=== PATIENT | female | born 1950 | race Caucasian/White ===

== ENCOUNTER 2016-06-21 07:30 | Day surgery (SDC) | payer BC ==
--- NOTE | 2016-06-01 16:14 | History and Physical ---
History & Physical Date Jun 01, 2016. Chief Complaint Chronic cough with bronchiectasis History of Present Illness The patient is a 66 year old female with complaints of chronic cough with bronchiectasis: [id number] 66-year-old female here for follow-up on chronic bronchiectasis/cough: Patient was noted to have severe necrotizing pneumonia of the left upper lobe in 12/2013 with polymicrobial etiology. Since then she has had a chronic cough which has been intermittently productive but appears to be worsening in its affect on her daily life activities. On April 25, 2016 she noted severe coughing overnight and was evaluated by her PCP with chest x-ray showing no acute changes. She continues on her previous medication but does note increasing debility secondary to the cough for the past 12 months. Denies: Fever, chills, night sweats, hemoptysis, productive sputum, pleurisy PMHx: 1.Bronchitic asthma 2.GERD 3.DM II 4.Peripheral neuropathy 5.lichen planus 6.vitamin-D deficiency 7.PFO 8.Hx necrotizing pneumonia/abscess MAME a.Polymicrobial: Klebsiella, Haemophilus, and Streptococcus intermedius 9.Bronchoscopy a.12/31/13: Klebsiella b.04/01/2014 i.mucopurulent secretions ii.No organism cultured. Fungal + rare aspergillus non-fumigatas c.08/29/14 i.Were Aspergillus no fumigatus d.10/21/14 i.Rare Wilda 10.Transthoracic CT-guided biopsy of the left upper lobe a.Klebsiella, Streptococcus, Haemophilus 11.Obesity s/p bariatric surgery 12.Former history of tobacco use for 5-10 pack-year quit 1994 13.No occupational exposure 14.Difficulty to exposures such as perfumes and other allergens Date: 10/15/2015 PRE POST % CHANGE FEV1/FVC: 57 FEV1: 1.70/67 % 1.78/70 % 5 % FVC: 3.00/94 % 3.16/99 % 5 % 25-27%: 69 % 69 % T.07/115 % VC: 3.64/114 % RV: 2.43/119 % FRC: 2.55/97 % DLCO: 76 % DLCO/VA: 121 % Past Medical/Surgical History 1.Bronchitic asthma 2.GERD 3.DM II 4.Peripheral neuropathy 5.lichen planus 6.vitamin-D deficiency 7.PFO 8.Hx necrotizing pneumonia/abscess MAME a.Polymicrobial: Klebsiella, Haemophilus, and Streptococcus intermedius 9.Bronchoscopy a.12/31/13: Klebsiella b.04/01/2014 i.mucopurulent secretions ii.No organism cultured. Fungal + rare aspergillus non-fumigatas c.08/29/14 i.Were Aspergillus no fumigatus d.10/21/14 i.Rare Wilda 10.Transthoracic CT-guided biopsy of the left upper lobe a.Klebsiella, Streptococcus, Haemophilus 11.Obesity s/p bariatric surgery 12.Former history of tobacco use for 5-10 pack-year quit 1994 13.No occupational exposure 14.Difficulty to exposures such as perfumes and other allergens Additional History Hepatic Disease: No Endocrine Disorder: DM Kidney Disease: No Hypertension: Yes Heart Disease: No Bleeding Tendencies: No Infectious Diseases: Yes Allergies Coded Allergies: BEE STING (Unverified Allergy, Severe, SWELLING AND TROUBLE BREATHING, ) Sulfa Antibiotics (Verified Allergy, Severe, HIVES, 10/21/14) Home Medications Scheduled Cyanocobalamin (Vitamin B-12 Inj), 1,000 MCG SQ MONTHLY Epinephrine (Epipen), 0.3 MG IM UD Ergocalciferol (Vitamin D2), 2,000 MG PO QAM Metformin Hcl (Glucophage Ext Rel), 1,000 MG PO BID Multivitamins/Minerals (Mvi With Minerals), 1 TAB PO DAILY Thiamine Hcl (Vitamin B-1), 100 MG PO DAILY Scheduled PRN Ipratropium-Albuterol (Combivent Respimat), 1 PUFFS INH QID PRN for Wheezing Miscellaneous Medications Albuterol Sulf (Albuterol Sulfate 0.083% For Inh), 3 ML INH Physical Examination Skin: warm/dry, no rash Eyes: normal inspection, EOMI, sclerae normal ENT: normal ENT inspection, pharynx normal Head: normocephalic, atraumatic Neck: supple, no adenopathy, trachea midline Respiratory/Chest: lungs clear, normal breath sounds, no respiratory distress Cardiovascular: regular rate, rhythm, no edema, no murmur Abdomen / GI: normal bowel sounds, non tender Back: normal inspection Extremities: normal inspection, normal range of motion Genitourinary - Female: external genitalia normal, normal pelvic exam Neurologic/Psych: no motor/sensory deficits, alert, normal reflexes, oriented x 3 Diagnosis Chronic cough with bronchiectasis ASA Classification: ASA Class II Plan of Treatment Bronchoscopy with bronchial alveolar lavage for evaluation of chronic cough
[2016-06-21] VITALS (15 sets, daily range): BP systolic 128–175; BP diastolic 65–128; PULSE 61–119; TEMP 36.7–37.1; O2SAT 93–100; Ht 162.6 cm; Wt 91.0 kg
[~2016-06-21] VITALS: Ht 162.6 cm; Wt 91.0 kg
[~2016-06-21 07:30] MED LIST: ALBU1NEB10 INH; CYAN3INJ SQ; EPP3/2 IM; ERGO1TAB12 PO; IPRA1AER2 INH; METF1TAB53 PO; MULT-513 PO; THIA100T11 PO
[2016-06-21] MEDS ORDERED: LIDOCAINE HCL 2% LOCAL 50ML VIAL INFIL ONE (07:31)
[2016-06-21] MEDS ORDERED: LEVALBUTEROL 1.25MG/3ML NEB INH ONE (07:31)
[2016-06-21] MEDS ORDERED: LIDOCAINE 4% W/AFRIN NASAL SOLN 4ML ONE (07:31)
[2016-06-21] MEDS ORDERED: FENTANYL CITRATE INJ 50 MCG/1 ML 2 ML VIAL IV ONE (07:31)
[2016-06-21] MEDS ORDERED: MIDAZOLAM HCL 5 MG/ML 1 ML VIAL IV ONE (07:31)
[2016-06-21] MEDS ORDERED: INSU100I2 (08:38)
[2016-06-21] MEDS ORDERED: ESCI10TA17 PO (08:45)
[2016-06-21] MEDS ORDERED: [UNRECOGNIZED DRUG - OTHER] PO (08:45)
[2016-06-21] MEDS ORDERED: SYMIN160 INH (08:45)
[2016-06-21] MEDS ORDERED: flonase nasal NAE (08:45)
[2016-06-21] MEDS ORDERED: SUCR1TAB29 PO (08:45)
--- NOTE | 2016-06-21 10:08 | History & Physical Bridge Note ---
H&P Re-Evaluation Bridge Note: I have examined the patient, reviewed the History & Physical and in the interval since the performance of the History & Physical I have noted the following changes of clinical significance: No changes noted
--- NOTE | 2016-06-21 10:09 | Procedure Note ---
Pre-Mod Sedation Assessment General Date of Moderate Sedation: Jun 21, 2016. Vital Signs: Vital Signs Past 12 Hours Date Time Temp Pulse Resp B/P Pulse Ox O2 Delivery O2 Flow Rate FiO2 06/21/16 08:25 37.1 70 20 174/85 96 Room Air Pre-Sedation Airway Assessment Oral Cavity: Dentures Smoking Status: Former Smoker Mallampati Classification: Class II ASA Classification: Class I Procedure Planning Contraindications-for Mod Sed: None Yes Notes The planned sedation has been discussed with the patient and consent obtained. I have identified the patient, determined the appropriateness of sedation and have assessed the patient immediately prior to the procedure. All medicine(s) and interventions are by my order.
[2016-06-21] MEDS ORDERED: NURSING VERBAL MED ORDER ONE (11:15)
--- NOTE | 2016-06-21 11:22 | OPERATIVE REPORT ---
DATE OF OPERATION: 06/21/2016 TIME: 0900. PROCEDURE: Fiberoptic bronchoscopy with bronchoalveolar lavage. INDICATIONS: COPD with persistent cough refractory to outpatient therapy. ANESTHESIA PREOPERATIVELY: None. ANESTHESIA DURING PROCEDURE: 5 mg IV Versed, 50 mcg IV fentanyl, 20 mL 2% Xylocaine spray above and below the cords, 4% viscous Xylocaine intranasally. PROCEDURE: Fiberoptic bronchoscope was inserted into the left naris with minimal difficulty and passed to the level of the true vocal cords. The cords appeared to approximate normally with phonation without evidence of lesions or paralysis. The area was anesthetized with 4% Xylocaine spray and the scope was then introduced in the trachea and right and left tracheobronchial tree. The ada was sharp. The right main stem bronchus was free of endobronchial lesions. The right upper lobe of the apical-posterior and anterior segments, bronchus intermedius, right middle lobe, and the medial and lateral segments and all basilar segments of right lower lobe were found to be free of endobronchial lesions. A minimal to moderate amount of mucoviscous secretion was lavaged from all lobar segments until clear. Mucus pitting with bronchial crypts and clefts were seen throughout the right tracheobronchial tree. The left tracheobronchial tree showed similar changes with more inflammatory mucosal change seen involving the left upper lobe and lingular subdivision. The left upper lobe of the apical-posterior and anterior segments, and lingular subdivision were lavaged copiously with normosol and the aspirate sent for appropriate studies. The left lower lobe with all basilar segments as well was lavaged with normosol and the aspirate sent for appropriate studies. No brushings or biopsies were deemed necessary. The patient tolerated the procedure well and was given a nebulizer treatment with Xopenex 1.25 mg, then transferred to the medical treatment unit hemodynamically stable with no signs of respiratory compromise. Will await microbiological and cytologic examination of the bronchial washings. I attest to the content of the Intraoperative Record and any orders documented therein. Any exceptions are noted below. MTDD
--- NOTE | 2016-06-21 11:36 | Discharge Instructions ---
Discharge Instructions Admission Reason for Admission: Asthma, Cough, bronchiectasis Discharge Discharge Diagnosis / Problem: Bronchiectasis and Cough Discharge Goals Goal(s): Diagnostic testing, Therapeutic intervention Activity Recommendations Activity Limitations: resume your previous activity . Instructions / Follow-Up Instructions / Follow-Up ACTIVITY RECOMMENDATIONS: * Rest today, resume normal activity tomorrow. * Do not drive today. SPECIAL CARE INSTRUCTIONS: * Call your physician if you experience any chest or shoulder pain, fever, coughing, spitting up blood (more than 2 teaspoons) or excessive shortness of breath. * Remove dressing from IV site (where needle was placed into the vein) after 2 hours. Apply a warm, moist compress to site if irritation occurs. Call physician if site becomes red or painful to touch. FOLLOW UP VISIT: * Keep any scheduled doctor appointments: Zuhair Galaviz PA-C on June 29, 2016 at 2:00PM Current Hospital Diet None Discharge Diet Recommended Diet: Diabetes Type 2 Diet (Prior Diabetic Diet ) Procedures Procedures Performed: Bronchoscopy 06/21/16 Pending Studies Studies pending at discharge: yes List of pending studies: Cultures and pathology from respiratory origin Medical Emergencies . Who to Call and When: Medical Emergencies: If at any time you feel your situation is an emergency, please call 911 immediately. . Non-Emergent Contact Non-Emergency issues call your: Patient Safety Tech . . "Provider Documentation" section prepared by Ju Pearson. VTE Core Measure Inpt VTE Proph given/why not?: Contraindicated
[2016-06-21] MEDS ORDERED: DEXTROSE 5% 1000ML 1,000 ML IV SCH (12:45)
[2016-06-21] MEDS ORDERED: MIDAZOLAM HCL 5 MG/ML 1 ML VIAL IV SCH (13:00)
[2016-06-21] MEDS ORDERED: FENTANYL CITRATE INJ 50 MCG/1 ML 2 ML VIAL IV SCH (13:00)
[2016-07-16 14:45] LABS: HERPES SIMPLEX CULT SOURCE RESPIRATORY-RT AND L; HERPES SIMPLEX VIRUS CULT NOT ISOLATED (NOT ISOLATED)
== END 2016-06-21 13:05 | disposition home or self-care (01) ==
LOC: C.ACU 07:30
PROVIDERS: ATTEND Internal Medicine Pulmonary Disease
DX: J44.9 Chronic obstructive pulmonary disease, unspecified (principal); J47.9 Bronchiectasis, uncomplicated; J45.909 Unspecified asthma, uncomplicated; E11.9 Type 2 diabetes mellitus without complications; Z88.2 Allergy status to sulfonamides; Z98.84 Bariatric surgery status; E66.9 Obesity, unspecified; Z87.891 Personal history of nicotine dependence

== ENCOUNTER → 2016-06-30 | Outpatient (CLI) | payer BC ==
[~2016-06-30] MED LIST changes: +ESCI10TA17 PO; +INSU100I2; +SUCR1TAB29 PO; +SYMIN160 INH; +[UNRECOGNIZED DRUG - OTHER] PO; +flonase nasal NAE
--- NOTE | 2016-06-30 13:55 | ECHOCARDIOGRAM REPORT ---
*NOTICE TO RECEIVING LIBERTARIAN AGENCY This information is strictly Confidential and protected under [place] law. [place] law prohibits you from making any further disclosure of this information unless further disclosure is expressly permitted by the written consent of the person to whom it pertains or is authorized by law. A general authorization for the release of medical or other information is not sufficient for this purpose. Hospital accepts no responsibility if the information is made available to any other person, INCLUDING THE PATIENT. Interpretation Summary * Name: YAMIL PALMA Study Date: 06/30/2016 01:37 PM BP: 176/82 mmHg * Patient Location: [facility] HR: 63 * : 1950 (M/d/yyyy) Gender: Female Height: 65 in * Age: 66 yrs Ethnicity: [place] Weight: 200 lb * Ordering Physician: Zach Naidu * Referring Physician: aZch Naidu * Performed By: Rehana Nixon * * Reason For Study: CHEST PAIN, SOB, COUGH, BRONCHOPNEUMONIA * BSA: 2.0 m2 * -- Conclusions -- * Left ventricular systolic function is normal. * No regional wall motion abnormalities noted. * Ejection Fraction = 55-60%. * There is borderline concentric left ventricular hypertrophy. * Grade I diastolic dysfunction, (abnormal relaxation pattern). Procedure Details * A complete two-dimensional transthoracic echocardiogram was performed (2D, M-mode, Doppler and color flow Doppler). Left Ventricle * The left ventricle is normal in size. * There is borderline concentric left ventricular hypertrophy. * Ejection Fraction = 55-60%. * Left ventricular systolic function is normal. * No regional wall motion abnormalities noted. Right Ventricle * The right ventricle is not well visualized. * The right ventricular systolic function is normal as assessed by tricuspid annular plane systolic excursion (TAPSE) (normal >1.5 cm). Atria * The left atrial size is normal. * Right atrial size is normal. * No ASD detected; PFO is not assessed. Mitral Valve * The mitral valve is grossly normal. * There is no mitral valve stenosis. * Significant mitral regurgitation is absent. Tricuspid Valve * The tricuspid valve is not well visualized, but is grossly normal. * There is no tricuspid stenosis. * Significant tricuspid regurgitation is absent. Aortic Valve * The aortic valve is trileaflet. * The aortic valve opens well. * Aortic valve sclerosis mild, without significant aortic valvular stenosis. * No aortic regurgitation is present. Pulmonic Valve * The pulmonary valve is not well seen, but the Doppler examination is normal without significant regurgitation or stenosis. Great Vessels * The aortic root and proximal ascending aorta are normal sized. * The pulmonary artery is not well visualized, but is probably normal size. Pericardium/Pleural * There is no pericardial effusion. Great Vessels * IVC not well seen. Left Ventricular Diastolic Function * Grade I diastolic dysfunction, (abnormal relaxation pattern). MMode 2D Measurements and Calculations IVSd 1.4 cm IVSs 1.7 cm LVIDd 3.7 cm LVIDs 2.4 cm LVPWd 1.4 cm LVPWs 1.8 cm IVS/LVPW 1.0 FS 33.9 % EDV(Teich) 58.2 ml ESV(Teich) 21.2 ml EF(Teich) 63.7 % EDV(cubed) 50.8 ml ESV(cubed) 14.7 ml EF(cubed) 71.1 % % IVS thick 16.2 % % LVPW thick 28.3 % LV mass(C)d 188.3 grams LV mass(C)dI 95.2 grams/m\S\2 LV mass(C)s 157.5 grams LV mass(C)sI 79.6 grams/m\S\2 SV(Teich) 37.1 ml SI(Teich) 18.7 ml/m\S\2 SV(cubed) 36.1 ml SI(cubed) 18.3 ml/m\S\2 ACS 1.5 cm LA dimension 3.6 cm LVOT diam 1.6 cm LVOT area 1.9 cm\S\2 LVAd ap4 23.9 cm\S\2 LVLd ap4 7.1 cm EDV(MOD-sp4) 64.2 ml EDV(sp4-el) 68.2 ml LVAs ap4 14.7 cm\S\2 LVLs ap4 6.2 cm ESV(MOD-sp4) 29.1 ml ESV(sp4-el) 29.4 ml EF(MOD-sp4) 54.7 % EF(sp4-el) 56.8 % LVAd ap2 26.9 cm\S\2 LVLd ap2 7.8 cm EDV(MOD-sp2) 76.1 ml EDV(sp2-el) 78.9 ml LVAs ap2 16.6 cm\S\2 LVLs ap2 6.1 cm ESV(MOD-sp2) 36.1 ml ESV(sp2-el) 38.2 ml EF(MOD-sp2) 52.5 % EF(sp2-el) 51.5 % LVLd %diff 8.5 % EDV(MOD-bp) 72.6 ml LVLs %diff -1.96 % ESV(MOD-bp) 32.1 ml EF(MOD-bp) 55.7 % SV(MOD-sp4) 35.1 ml SI(MOD-sp4) 17.7 ml/m\S\2 SV(MOD-sp2) 40.0 ml SI(MOD-sp2) 20.2 ml/m\S\2 SV(MOD-bp) 40.5 ml SI(MOD-bp) 20.5 ml/m\S\2 SV(sp4-el) 38.7 ml SI(sp4-el) 19.6 ml/m\S\2 SV(sp2-el) 40.6 ml SI(sp2-el) 20.5 ml/m\S\2 Doppler Measurements and Calculations MV E max oilvia 80.8 cm/sec MV A max olivia 114.0 cm/sec MV E/A 0.71 MV dec time 0.29 sec Ao V2 max 128.4 cm/sec Ao max PG 6.6 mmHg Ao max PG (full) 2.0 mmHg SMILEY(V,A) 1.6 cm\S\2 SMILEY(V,D) 1.6 cm\S\2 LV V1 max PG 4.6 mmHg LV V1 mean PG 2.3 mmHg LV V1 max 107.6 cm/sec LV V1 mean 69.3 cm/sec LV V1 VTI 29.2 cm SV(LVOT) 55.8 ml SI(LVOT) 28.2 ml/m\S\2 PA V2 max 77.8 cm/sec PA max PG 2.4 mmHg
== END | disposition home or self-care (01) ==
LOC: C.CPL 11:53
PROVIDERS: ATTEND Internal Medicine Pulmonary Disease
DX: R07.9 Chest pain, unspecified (principal)

== ENCOUNTER 2018-11-01 09:17 | Inpatient (IN) ==
[2018-11-01] MEDS ORDERED: SODIUM CHLORIDE 0.9% 1000ML 1,000 ML IV ONE (09:25)
[2018-11-01] MEDS ORDERED: ACETAMINOPHEN 1,000 MG/100 ML VIAL IV STA (09:25)
[2018-11-01] MEDS ORDERED: ONDANSETRON INJ 2 MG/ML 2 ML VIAL IV STA (09:25)
[2018-11-01] MEDS ORDERED: MoRPHine SULFATE 2 MG/ML CARP IV PRN (09:25)
--- NOTE | 2018-11-01 09:42 | XRay Report ---
XR chest 1V portable CLINICAL HISTORY: Shortness of breath. COMPARISON STUDY: Chest CT August 16, 2017. Chest radiograph August 25, 2018. FINDINGS: Lung volumes are normal. Linear bilateral lung opacities represent scarring or atelectasis. There is no pneumothorax or pleural effusion. Cardiac size is normal. Mediastinal contours are mannie l. There is no evidence for pulmonary edema. IMPRESSION: No acute cardiopulmonary findings. Electronically signed by: Valerio Epps M.D. 11/01/2018 9:41 AM
[2018-11-01] MEDS ORDERED: MoRPHine SULFATE 4 MG/ML 1 ML CARP\\VIAL IV STA (10:02)
[2018-11-01 10:03] LABS: Basophils # (auto) 0.02 K/uL (0-0.2); Basophils % (auto) 0.2 %; Eosinophils # (auto) 0.02 K/uL (0-0.5); Eosinophils % (auto) 0.2 %; Hematocrit (blood only) 46.3 % (37-47); Hemoglobin 15.4 g/dL (12.0-16.0); Immature Granulocytes # (auto) 0.03 K/uL (0.00-0.02); Immature Granulocytes % (auto) 0.2 %; Lymphocytes # (auto) 1.25 K/uL (1.2-3.4); Lymphocytes % (auto) 9.4 %; Mean Corpuscular Hgb Conc 33.3 g/dL (32-36); Mean Corpuscular Volume 87.9 fL (80-100); Mean Platelet Volume 10.4 fL (7.4-10.4); Monocytes # (auto) 0.91 K/uL (0.11-0.59); Monocytes % (auto) 6.9 %; Neutrophils % (auto) 83.1 %; Platelet Count 261 K/uL (130-400); RDW Coefficient of Variation 13.6 % (11.5-14.5); RDW Standard Deviation 43.6 fL (36.4-46.3); Red Blood Count 5.27 M/uL (4.2-5.4); White Blood Count 13.23 K/uL (4.8-10.8)
--- NOTE | 2018-11-01 10:13 | Emergency Department Note ---
Entered by Rehana Herman acting as a scribe for Carlos Mercedes MD History of Present Illness General Chief complaint: Abdominal Pain Time Seen by Provider: 11/01/18 09:20 Source: patient History of Present Illness Onset (ago): hour(s) (this morning) Location: abdomen (left upper quadrant) Radiation: other (left shoulder and left arm) Severity: severe Pain Consistency: + other (episode) Current Pain Intensity: 10 Associated symptoms: + denies other symptoms (diarrhea, changes to bowel movements) and + other (nausea, vomiting, bloating) The patient is a 68 year old female that is presenting to the Emergency Room with complaints of an episode of severe upper left abdominal pain that started this morning. The patient reports that she started having 10/10 abdominal pain starting around 0330 this morning. She states that she thought that the pain would resolve if she lay still, but she notes that the pain continued to worsen. She notes that she was at work when the pain started. The patient reports that she vomited once this morning and notes that she is currently nauseous. She states that she is unsure if there was any blood in her vomit. She states that she feels bloated. She notes that the pain radiates into her left shoulder and left arm. She denies any diarrhea and notes that she has had normal bowel movements. The patient reports that she was nauseous and vomiting last night but she notes that the pain was only mild at that time. She states that she has a history of a bleeding ulcer but she notes that she has run out of Protonix. The patient reports that she has a history of a gastric bypass but notes that her current pain is out of the ordinary for her. She denies using any blood thinners. She denies any history of a bowel obstruction. She notes that she had abnormal creatinine levels in the past due to abnormal blood glucose levels, but she states that this has since resolved. The patient reports that she has a history of COPD and bronchiectasis. She notes that she was concerned that her current symptoms were related to her lungs. Home Medications Home Medications Medication Instructions Recorded Confirmed Type albuterol sulfate 3 ml INHALATION Q6 PRN #0 10/21/14 11/01/18 History budesonide-formoterol 2 puff INHALATION BID #0 inhaler 06/21/16 11/01/18 History amlodipine 10 mg PO QAM 11/01/18 11/01/18 History cholecalciferol (vitamin D3) 5,000 unit PO QAM 11/01/18 11/01/18 History [Vitamin D3] fluticasone propionate [Flonase 2 spray INTRANASAL DAILY PRN 11/01/18 11/01/18 History Allergy Relief] glimepiride 1 mg PO QAM 11/01/18 11/01/18 History lorazepam 1 mg PO QAM PRN 11/01/18 11/01/18 History metformin 1,000 mg PO BID 11/01/18 11/01/18 History qpzafmvfprrr-crozmmyu-edlhik 1 tab PO QAM 11/01/18 11/01/18 History [Multivitamin 50 Plus] sucralfate 1 g PO QID 11/01/18 11/01/18 History thiamine HCl (vitamin B1) 250 mg PO QAM 11/01/18 11/01/18 History trazodone 150 mg PO HS PRN 11/01/18 11/01/18 History Allergies Allergy/AdvReac Type Severity Reaction Status Date / Time bee venom protein (honey bee) Allergy Severe SWELLING Unverified 11/01/18 10:57 AND TROUBLE BREATHING Sulfa (Sulfonamide Allergy Severe HIVES Verified 11/01/18 10:57 Antibiotics) Past Med/Surg History Medical History Diabetes mellitus Hemoptysis (Acute) Hiatal hernia (Acute) Bronchiectasis COPD (chronic obstructive pulmonary disease) Pneumonia Surgical History S/P carpal tunnel release S/P gastric bypass History of bronchoscopy Family History Other Family history non-contributory Social History Preferred Language: Ghanaian Communication Ability: Effective Beliefs That Will Affect Care: None Current Living Situation: Alone Feels Safe at Home: Yes Smoking Status: Never smoker Tobacco Type: cigarettes Hx Alcohol Use: No Hx Substance Use: No Review of Systems See HPI for pertinent positives & negatives. and A total of 10 systems reviewed and were otherwise negative Physical Exam Vital Signs Vital Signs - 24 hr 11/01/18 09:24 11/01/18 10:02 11/01/18 10:20 Temperature 36.7 C Temperature Source Oral Sepsis Recent Fever Within 48 Hours No Sepsis New/Unexplained Change in Mental Status No Sepsis Action Taken by Nursing No Action Required Pulse Rate 93 H Pulse Rate [Apical] 103 H 86 Pulse Rhythm Regular Pulse Rhythm [Apical] Regular Regular Pulse Strength [Apical] Normal Respiratory Rate 18 18 19 Respiratory Effort / Characteristics Non-Labored Spontaneous Non-Labored Spontaneous Non-Labored Spontaneous Respiratory Depth Normal Normal Normal Respiratory Pattern Regular Regular Regular Blood Pressure 90/58 L Blood Pressure [Left Arm] Blood Pressure [Right Arm] 84/58 L 98/63 L Blood Pressure Mean 68 Blood Pressure Mean [Left Arm] Blood Pressure Mean [Right Arm] 66 74 Blood Pressure Position [Left Arm] Blood Pressure Position [Right Arm] Pulse Oximetry 98 98 99 Oxygen Delivery Method Room Air Room Air Room Air Oxygen Flow Rate 11/01/18 10:45 11/01/18 11:00 11/01/18 11:25 Temperature Temperature Source Sepsis Recent Fever Within 48 Hours Sepsis New/Unexplained Change in Mental Status Sepsis Action Taken by Nursing Pulse Rate 83 Pulse Rate [Apical] 81 80 Pulse Rhythm Pulse Rhythm [Apical] Regular Regular Pulse Strength [Apical] Respiratory Rate 17 18 18 Respiratory Effort / Characteristics Non-Labored Spontaneous Non-Labored Spontaneous Respiratory Depth Normal Normal Respiratory Pattern Regular Regular Blood Pressure 109/66 Blood Pressure [Left Arm] Blood Pressure [Right Arm] 118/61 117/67 Blood Pressure Mean Blood Pressure Mean [Left Arm] Blood Pressure Mean [Right Arm] 80 83 Blood Pressure Position [Left Arm] Blood Pressure Position [Right Arm] Pulse Oximetry 98 97 96 Oxygen Delivery Method Room Air Room Air Room Air Oxygen Flow Rate 11/01/18 11:42 11/01/18 13:50 11/01/18 14:00 Temperature 36.7 C 36.9 C Temperature Source Oral Temporal Artery Scan Sepsis Recent Fever Within 48 Hours Sepsis New/Unexplained Change in Mental Status Sepsis Action Taken by Nursing Pulse Rate Pulse Rate [Apical] 83 80 84 Pulse Rhythm Pulse Rhythm [Apical] Regular Regular Regular Pulse Strength [Apical] Normal Respiratory Rate 20 18 18 Respiratory Effort / Characteristics Non-Labored Spontaneous Non-Labored Spontaneous Non-Labored Spontaneous Respiratory Depth Normal Normal Normal Respiratory Pattern Regular Blood Pressure Blood Pressure [Left Arm] 122/59 L 130/65 Blood Pressure [Right Arm] 130/75 Blood Pressure Mean Blood Pressure Mean [Left Arm] 80 86 Blood Pressure Mean [Right Arm] 93 Blood Pressure Position [Left Arm] Semi-fowlers Semi-fowlers Blood Pressure Position [Right Arm] Sitting Pulse Oximetry 98 100 100 Oxygen Delivery Method Room Air Oxymask Oxymask Oxygen Flow Rate 10 10 11/01/18 14:10 11/01/18 14:20 Temperature Temperature Source Sepsis Recent Fever Within 48 Hours Sepsis New/Unexplained Change in Mental Status Sepsis Action Taken by Nursing Pulse Rate Pulse Rate [Apical] 75 75 Pulse Rhythm Pulse Rhythm [Apical] Regular Regular Pulse Strength [Apical] Respiratory Rate 18 18 Respiratory Effort / Characteristics Non-Labored Spontaneous Non-Labored Spontaneous Respiratory Depth Normal Normal Respiratory Pattern Blood Pressure Blood Pressure [Left Arm] 114/53 L 119/65 Blood Pressure [Right Arm] Blood Pressure Mean Blood Pressure Mean [Left Arm] 73 83 Blood Pressure Mean [Right Arm] Blood Pressure Position [Left Arm] Semi-fowlers Semi-fowlers Blood Pressure Position [Right Arm] Pulse Oximetry 100 100 Oxygen Delivery Method Oxymask Nasal Cannula Oxygen Flow Rate 10 2 GENERAL: Patient is in moderate distress. HEENT: No acute trauma, normocephalic atraumatic, mucous membranes moist, no nasal congestion, no scleral icterus. NECK: No stridor, no adenopathy, no meningismus, trachea is midline. LUNGS: Clear to auscultation bilaterally, no wheeze, no rhonchi, breath sounds equal. HEART: Without murmurs gallops or rubs, regular rate and rhythm. ABDOMEN: Soft, bowel sounds positive, no hernias. Significantly tender in left upper quadrant and epigastric region. EXTREMITIES: No cyanosis or edema, full range of motion of all the joints without pain or difficulty, no signs for acute trauma. NEUROLOGIC: Oriented x 3, no acute motor or sensory deficits, no focal weakness. SKIN: No rash, no jaundice, no diaphoresis. Pale. Course 0921:The patient was evaluated in room B12B. A complete history and physical examination was performed. 1026: I discussed the patients case with Dr. Epps, Radiology, who noted that the patient had a bowel perforation with bowel contents that have leaked into the abdomen. 1030: I updated the patient on her current lab and imaging results. She in amenable to the treatment plan. 1044: I discussed the patients case with Dr. Kemp, General Surgery, who will evaluate the patient further. He recommended that Dr. Quintanilla perform a laparoscopic surgery for the patient as soon as possible. 1050: I discussed laboratory and radiographic results with the patient. She verbalized agreement of the treatment plan. The patient will be evaluated for further management and care by surgery. Consultations Consultation #1: I discussed the patients case with Dr. Kemp, General Surgery, who will evaluate the patient further. He recommended that Dr. Quintanilla perform a laparoscopic surgery for the patient as soon as possible. Time: 10:44 Administered Medications Fentanyl Citrate (Fentanyl Citrate) 50 mcg IV Q5M PRN PRN Reason: PACU Use Only-Pain Stop: 11/01/18 16:24 Last Admin: 11/01/18 14:14 Dose: 50 mcg Documented by: [id number] Admin: 11/01/18 14:09 Dose: 50 mcg Documented by: [id number] Morphine Sulfate (Morphine Sulfate) 2 mg IV Q15M PRN PRN Reason: Pain Stop: 11/15/18 09:24 Last Admin: 11/01/18 09:54 Dose: 2 mg Documented by: [id number] Discontinued Medications Bupivacaine HCl/Epinephrine Bitart (Sensorcaine/Epinephrine 0.5% Mpf 1:200,000) Confirm Administered Dose 30 ml .ROUTE .STK-MED ONE Stop: 11/01/18 11:16 Last Admin: 11/01/18 13:40 Dose: 10 ml Documented by: [id number] Acetaminophen (Ofirmev) 1,000 mg in 100 mls @ 400 mls/hr IV NOW STA Stop: 11/01/18 09:39 Last Infusion: 11/01/18 10:44 Dose: 0 mls/hr Documented by: [id number] Admin: 11/01/18 10:04 Dose: 400 mls/hr Documented by: [id number] Sodium Chloride (Nss 1000ml) 1,000 mls @ 999 mls/hr IV .Q1H1M ONE Stop: 11/01/18 10:25 Last Infusion: 11/01/18 11:00 Dose: 0 mls/hr Documented by: [id number] Admin: 11/01/18 09:55 Dose: 999 mls/hr Documented by: [id number] Piperacillin Sod/Tazobactam Sod (Zosyn) 4.5 gm in 120 mls @ 240 mls/hr IV NOW ONE Stop: 11/01/18 10:56 Last Infusion: 11/01/18 11:25 Dose: 0 mls/hr Documented by: [id number] Admin: 11/01/18 10:44 Dose: 240 mls/hr Documented by: [id number] Methylene Blue (Provayblue 0.5%) Confirm Administered Dose 10 ml .ROUTE .STK-MED ONE Stop: 11/01/18 12:36 Last Admin: 11/01/18 13:27 Dose: Not Given Documented by: [id number] Miscellaneous (Tisseel Fibrin Sealant 10ml) 10 ml TOP ONCE ONE Stop: 11/01/18 12:53 Last Admin: 11/01/18 13:18 Dose: 10 ml Documented by: [id number] Morphine Sulfate (Morphine Sulfate) 4 mg IV NOW STA Stop: 11/01/18 10:03 Last Admin: 11/01/18 10:06 Dose: 4 mg Documented by: [id number] Ondansetron HCl (Zofran) 4 mg IV NOW STA Stop: 11/01/18 09:26 Last Admin: 11/01/18 09:54 Dose: 4 mg Documented by: [id number] Medical Decision Making Differential Diagnosis Differentials diagnosis: Etiologies such as bowel obstruction, bowel perforation, ulcer, GI bleeding, splenic or renal injury, UTI, pneumonia, NH, pancreatitis, biliary colic, AAA as well as others were entertained. Medical Records Attestation: I reviewed the patient's medical records. Home Medications Current Medication List: was personally reviewed by me Laboratory Data Attestation: I reviewed the patient's lab results. Result diagrams: 11/01/18 09:48 11/01/18 09:48 Lab Results 11/01/18 11/01/18 11/01/18 Range/Units 09:48 09:48 09:48 WBC 13.23 H (4.8-10.8) K/uL RBC 5.27 (4.2-5.4) M/uL Hgb 15.4 (12.0-16.0) g/dL Hct 46.3 (37-47) % MCV 87.9 (80-100) fL MCH 29.2 (25-34) pg MCHC 33.3 (32-36) g/dL RDW Std Deviation 43.6 (36.4-46.3) fL RDW Coeff of Irina 13.6 (11.5-14.5) % Plt Count 261 (130-400) K/uL MPV 10.4 (7.4-10.4) fL Immature Gran % (Auto) 0.2 % Neut % (Auto) 83.1 % Lymph % (Auto) 9.4 % [place] % (Auto) 6.9 % Eos % (Auto) 0.2 % Baso % (Auto) 0.2 % Immature Gran # (Auto) 0.03 H (0.00-0.02) K/uL Neut # (Auto) 11.00 H (1.4-6.5) K/uL Lymph # (Auto) 1.25 (1.2-3.4) K/uL [place] # (Auto) 0.91 H (0.11-0.59) K/uL Eos # (Auto) 0.02 (0-0.5) K/uL Baso # (Auto) 0.02 (0-0.2) K/uL PT 10.4 (9.0-12.0) Seconds INR 1.0 (0.9-1.1) Sodium 140 (136-145) mmol/L Potassium 4.8 (3.5-5.1) mmol/L Chloride 106 (98-107) mmol/L Carbon Dioxide 24 (21-32) mmol/L Anion Gap 10.0 (3-11) BUN 27 H (7-18) mg/dl Creatinine 1.81 H (0.6-1.2) mg/dl Est Cr Clr Drug Dosing 31.2 ml/min Est GFR ( Amer) 32.9 Est GFR (Non-Af Amer) 28.4 BUN/Creatinine Ratio 14.7 (10-20) Glucose 162 H (70-99) mg/dl POC Glucose (70-99) Lactate (0.4-2.0) mmol/L Calcium 9.2 (8.5-10.1) mg/dl Total Bilirubin 1.0 (0.2-1) mg/dl AST 8 L (15-37) U/L ALT 12 (12-78) U/L Alkaline Phosphatase 97 (45-117) U/L Troponin I < 0.015 (0-0.045) ng/ml Total Protein 7.3 (6.4-8.2) gm/dl Albumin 4.0 (3.4-5.0) gm/dl Globulin 3.3 (2.5-4.0) gm/dl Albumin/Globulin Ratio 1.2 (0.9-2) Lipase 88 (73-393) U/L 11/01/18 11/01/18 11/01/18 Range/Units 09:53 11:38 13:58 WBC (4.8-10.8) K/uL RBC (4.2-5.4) M/uL Hgb (12.0-16.0) g/dL Hct (37-47) % MCV (80-100) fL MCH (25-34) pg MCHC (32-36) g/dL RDW Std Deviation (36.4-46.3) fL RDW Coeff of Irina (11.5-14.5) % Plt Count (130-400) K/uL MPV (7.4-10.4) fL Immature Gran % (Auto) % Neut % (Auto) % Lymph % (Auto) % [place] % (Auto) % Eos % (Auto) % Baso % (Auto) % Immature Gran # (Auto) (0.00-0.02) K/uL Neut # (Auto) (1.4-6.5) K/uL Lymph # (Auto) (1.2-3.4) K/uL [place] # (Auto) (0.11-0.59) K/uL Eos # (Auto) (0-0.5) K/uL Baso # (Auto) (0-0.2) K/uL PT (9.0-12.0) Seconds INR (0.9-1.1) Sodium (136-145) mmol/L Potassium (3.5-5.1) mmol/L Chloride (98-107) mmol/L Carbon Dioxide (21-32) mmol/L Anion Gap (3-11) BUN (7-18) mg/dl Creatinine (0.6-1.2) mg/dl Est Cr Clr Drug Dosing ml/min Est GFR ( Amer) Est GFR (Non-Af Amer) BUN/Creatinine Ratio (10-20) Glucose (70-99) mg/dl POC Glucose 175 H 174 H (70-99) Lactate 2.2 H* (0.4-2.0) mmol/L Calcium (8.5-10.1) mg/dl Total Bilirubin (0.2-1) mg/dl AST (15-37) U/L ALT (12-78) U/L Alkaline Phosphatase (45-117) U/L Troponin I (0-0.045) ng/ml Total Protein (6.4-8.2) gm/dl Albumin (3.4-5.0) gm/dl Globulin (2.5-4.0) gm/dl Albumin/Globulin Ratio (0.9-2) Lipase (73-393) U/L Imaging Data Radiologist's Impression: Radiology results as stated below per my review and the radiologist's interpretation: XR chest 1V portable CLINICAL HISTORY: Shortness of breath. COMPARISON STUDY: Chest CT August 16, 2017. Chest radiograph August 25, 2018. FINDINGS: Lung volumes are normal. Linear bilateral lung opacities represent scarring or atelectasis. There is no pneumothorax or pleural effusion. Cardiac size is normal. Mediastinal contours are normal. There is no evidence for pulmonary edema. IMPRESSION: No acute cardiopulmonary findings. Electronically signed by: Valerio Epps M.D. 11/01/2018 9:[address] OF THE ABDOMEN AND PELVIS WITHOUT CONTRAST CLINICAL HISTORY: Severe abdominal pain. Hypotension. COMPARISON STUDY: PET/CT May 06, 2014. TECHNIQUE: Axial images of the abdomen and pelvis were obtained without IV contrast. Images were reviewed in the axial, sagittal, and coronal planes. Automated exposure control was utilized for the study. A dose lowering technique was utilized adhering to the principles of ALARA. FINDINGS: Minimal groundglass opacities within the right lower lobe are noted. There is moderate pneumoperitoneum. There is also moderate extraluminal oral contrast. A small hiatal hernia is noted. The patient is status post Riky-en-Y gastric bypass. Note is made of contrast leakage either at or immediately adjacent to the gastrojejunostomy on axial image 82 of 461. This likely reflects the site of perforation. There is mild mesenteric infiltration. Nonspecific jejunal small bowel wall thickening is noted. There is no evidence for a bowel obstruction. Gallstones within gallbladder are noted. Evaluation of the abdomen and pelvis is suboptimal on this unenhanced exam. Low attenuation bilateral ad renal nodules are benign. No suspicious osseous lesion is noted. No lymphadenopathy. IMPRESSION: 1. Moderate pneumoperitoneum and extraluminal contrast consistent with perforated hollow viscus. Site of perforation likely at or immediately adjacent to the gastrojejunostomy. Potential etiologies include a perforated marginal ulcer. Status post Riky-en-Y gastric bypass. Mild mesenteric infiltration. Surgical consultation is recommended. Findings discussed with Dr. Mercedes at time of dictation. 2. Mild nonspecific jejunal wall thickening. No bowel obstruction. 3. Cholelithiasis. Electronically signed by: Valerio Epps M.D. 11/01/2018 10:36 AM ECG Data Attestation: I personally reviewed and interpreted this ECG as follows: Indication: abdominal pain Rate (beats per minute): 92 Rhythm: normal sinus Findings: no PVC and no ST elevation Blood Pressure Blood Pressure Findings: Low blood pressure MDM Narrative There is a mild leukocytosis at 13,000, this could be consistent with infection. No concerning anemia. Renal panel testing shows some dehydration/renal insufficiency with a creatinine of 1.8. Lactic acid level is elevated 2.2, this goes along with dehydration and/or possibly infection. No liver enzyme elevation. No pancreatitis. EKG shows a sinus rhythm, no acute ischemia. Ca rdiac enzyme testing x1 is not consistent with acute cardiac injury. Chest x- ray does not show mediastinal widening, or free air. Abdominal and pelvis CT shows evidence for free air, there is a bowel perforation likely at the gastric bypass surgical anastomosis. On exam, the patient was exquisitely tender in the upper quadrants. She was pale and looked uncomfortable. The patient was aggressively managed. She received IV saline, a second IV was placed. Her blood pressure improved with the saline administration. She received IV Zosyn as antibiotic coverage. She received IV Zofran for nausea. She was ordered for IV morphine for pain control. She was placed on the cardiac technologist. I talked with the patient about her findings. I discussed the case with general surgery. The patient was seen by general surgery here in the ED and was taken to the operating room for surgical intervention. The bowel perforation does explain her entire presentation. Impression & Plan Bowel perforation, Hypotension, Dehydration, Vomiting Critical Care Time Critical Care Time: Yes Total Critical Care Time: 40 I have personally spent 40 minutes of critical care time in the direct management of this patient. This includes bedside care, interpretation of diagnostic studies, and testing, discussion with consultants, patient, and family members, and other required patient management activities. This 40 minutes is in excess of all separately billable procedures. Discharge Plan Visit Data *Final* Discharge Date/Time: 11/01/18 11:25 Chief Complaint: Abdominal Pain Other Complaint: Illness ED Provider: Carlos Mercedes Discharge Problem: Bowel perforation, Hypotension, Dehydration, Vomiting Patient Disposition: Still a Patient Discharge Instructions Interventions: ED Discharge Assessment Last Done: 11/01/18 11:25 Discharge Problem: Hypotension Qualifiers: Hypotension type: unspecified hypotension type Qualified Code(s): I95.9 - Hypotension, unspecified Vomiting Qualifiers: Vomiting type: unspecified Vomiting Intractability: non-intractable Nausea presence: with nausea Qualified Code(s): R11.2 - Nausea with vomiting, unspecified The scribe's documentation has been prepared under my direction and personally reviewed by me in its entirety. I confirm that the note above accurately reflects all work, treatment, procedures, and medical decision making performed by me.
[2018-11-01 10:15] LABS: Prothrombin Time 10.4 Seconds (9.0-12.0)
[2018-11-01 10:21] LABS: Alanine Aminotransferase 12 U/L (12-78); Aspartate Aminotransferase 8 U/L (15-37); BUN Creatinine Ratio 14.7 (10-20); Blood Urea Nitrogen 27 mg/dl (7-18); Calcium 9.2 mg/dl (8.5-10.1); Carbon Dioxide 24 mmol/L (21-32); Chloride 106 mmol/L (98-107); Creatinine Clr Calc Pharmacy 31.2 ml/min; Est GFR (African American) 32.9; Est GFR (Non-African American) 28.4; Glucose 162 mg/dl (70-99); Potassium 4.8 mmol/L (3.5-5.1); Sodium 140 mmol/L (136-145)
[2018-11-01 10:26] LABS: Albumin Globulin Ratio 1.2 (0.9-2); Alkaline Phosphatase 97 U/L (45-117); Globulin 3.3 gm/dl (2.5-4.0); Total Protein 7.3 gm/dl (6.4-8.2); Troponin I < 0.015 ng/ml (0-0.045)
[2018-11-01] MEDS ORDERED: PIPERACILLIN/TAZOBACTAM 4.5 GM/120 ML BAG IV ONE (10:27)
--- NOTE | 2018-11-01 10:38 | CT Scan Report ---
CT OF THE ABDOMEN AND PELVIS WITHOUT CONTRAST CLINICAL HISTORY: Severe abdominal pain. Hypotension. COMPARISON STUDY: PET/CT May 06, 2014. TECHNIQUE: Axial images of the abdomen and pelvis were obtained without IV contrast. Images were revi ewed in the axial, sagittal, and coronal planes. Automated exposure control was utilized for the ayana dy. A dose lowering technique was utilized adhering to the principles of ALARA. FINDINGS: Minimal groundglass opacities within the right lower lobe are noted. There is moderate pneu moperitoneum. There is also moderate extraluminal oral contrast. A small hiatal hernia is noted. The patient is status post Riky-en-Y gastric bypass. Note is made of contrast leakage either at or immedi ately adjacent to the gastrojejunostomy on axial image 82 of 461. This likely reflects the site of pe rforation. There is mild mesenteric infiltration. Nonspecific jejunal small bowel wall thickening is noted. There is no evidence for a bowel obstruction. Gallstones within gallbladder are noted. Evaluat ion of the abdomen and pelvis is suboptimal on this unenhanced exam. Low attenuation bilateral adrena l nodules are benign. No suspicious osseous lesion is noted. No lymphadenopathy. IMPRESSION: 1. Moderate pneumoperitoneum and extraluminal contrast consistent with perforated hollow viscus. Site of perforation likely at or immediately adjacent to the gastrojejunostomy. Potential etiologies incl ude a perforated marginal ulcer. Status post Riky-en-Y gastric bypass. Mild mesenteric infiltration. Surgical consultation is recommended. Findings discussed with Dr. Mercedes at time of dictation. 2. Mild nonspecific jejunal wall thickening. No bowel obstruction. 3. Cholelithiasis. Electronically signed by: Valerio Epps M.D. 11/01/2018 10:36 AM
--- NOTE | 2018-11-01 11:09 | History & Physical Report ---
Date of Service November 01, 2018 Assessment & Plan (1) Bowel perforation: Patient most likely has a perforated ulcer at the gastrojejunostomy from the previous bypass I discussed the case with my partner will perform gastric bypass surgery and he recommended to proceed with laparoscopy and likely oversew the gastric perforation risk and complication were explained to the patient possible open and she would like to proceed accordingly all questions were answered her is at bedside Present on Admission?: Yes History of Present Illness This 68-year-old female came into the emergency room early this morning with approximately 6-hour history of abdominal pain that progressively became worse evaluated by the ER physician found her to have an acute abdomen CT scan showed pneumoperitoneum with a likely perforation of a previous gastric jejunostomy done laparoscopically for weight loss that was done approximately 7 years ago The patient states in about 6 weeks ago she had a bleeding ulcer in her stomach was treated and has not had a follow-up endoscopy she had one whenever the ulcer was initially found Primary Care Provider: Quinn Matos DO Allergies Allergy/AdvReac Type Severity Reaction Status Date / Time bee venom protein (honey bee) Allergy Severe SWELLING Unverified 11/01/18 10:57 AND TROUBLE BREATHING Sulfa (Sulfonamide Allergy Severe HIVES Verified 11/01/18 10:57 Antibiotics) Home Medications Home Medications Medication Instructions Recorded Confirmed Type albuterol sulfate 3 ml INHALATION Q6 PRN #0 10/21/14 11/01/18 History budesonide-formoterol 2 puff INHALATION BID #0 inhaler 06/21/16 11/01/18 History amlodipine 10 mg PO QAM 11/01/18 11/01/18 History cholecalciferol (vitamin D3) 5,000 unit PO QAM 11/01/18 11/01/18 History [Vitamin D3] fluticasone propionate [Flonase 2 spray INTRANASAL DAILY PRN 11/01/18 11/01/18 History Allergy Relief] glimepiride 1 mg PO QAM 11/01/18 11/01/18 History lorazepam 1 mg PO QAM PRN 11/01/18 11/01/18 History metformin 1,000 mg PO BID 11/01/18 11/01/18 History jcpsofhxsphg-hobkipfh-knxpvp 1 tab PO QAM 11/01/18 11/01/18 History [Multivitamin 50 Plus] sucralfate 1 g PO QID 11/01/18 11/01/18 History thiamine HCl (vitamin B1) 250 mg PO QAM 11/01/18 11/01/18 History trazodone 150 mg PO HS PRN 11/01/18 11/01/18 History Past Med/Surg History Medical History Hemoptysis (Acute) Hiatal hernia (Acute) Bronchiectasis COPD (chronic obstructive pulmonary disease) Pneumonia Surgical History History of bronchoscopy Family History Other Family history non-contributory Social History Preferred Language: [place] Communication Ability: Effective Beliefs That Will Affect Care: None Current Living Situation: Alone Feels Safe at Home: Yes Smoking Status: Never smoker Tobacco Type: cigarettes Hx Alcohol Use: No Hx Substance Use: No Review of Systems Review of Systems: Patient denies any denies any cardiac pulmonary any GI symptoms and a remote past she does have some hypertension she states that she has had a stress test done approximately 6 months ago that was read as normal Physical Exam Physical Exam: Patient is resting comfortably with abnormal color and texture of skin the sclerae nonicteric lungs are clear normal sinus rhythm abdomen consistent with acute abdomen generalized tenderness somewhat more localized in left upper quadrant extremities grossly normal no edema Results & Data Vital Signs (Past 12 Hours) Vital Signs Temp Pulse Pulse Resp BP BP Pulse Ox 11/01/18 10:45 81 17 118/61 98 11/01/18 10:20 86 19 98/63 L 99 11/01/18 10:02 103 H 18 84/58 L 98 11/01/18 09:24 36.7 C 93 H 18 90/58 L 98 CAT scan was reviewed as were laboratory studies
[2018-11-01] MEDS ORDERED: BUPIVACAINE/EPINEPHRINE 0.5% MPF 1:200,000 30 ML VIAL ONE (11:15)
[2018-11-01] MEDS ORDERED: MIDAZOLAM HCL 1 MG/ML 2ML VIAL ONE (11:17)
[2018-11-01] MEDS ORDERED: fentaNYL citrate 100 MCG/2 ML VIAL ONE ×2 (11:17→12:29)
[2018-11-01] MEDS ORDERED: ACETAMINOPHEN 1000 MG/100 ML IV IV ONE (11:22)
[2018-11-01] MEDS ORDERED: ATROPINE SULFATE 0.1 MG/ML 10ML SYR IV PRN (11:23)
[2018-11-01] MEDS ORDERED: ONDANSETRON INJ 2 MG/ML 2 ML VIAL IV PRN (11:23)
[2018-11-01] MEDS ORDERED: ePHEDrine sulfate 50 MG/ML AMP IV PRN (11:23)
--- NOTE | 2018-11-01 11:23 | Anesthesiology Consultation ---
Date of Service November 01, 2018 Assessment & Plan (1) Encounter for pre-operative examination: Chart Review Chart Review: Acceptable Risk for Surgery Consults Requested none ASA [id number] Proposed Anesthesia Anesthesia Type: General Risk / Benefits Reviewed With: PT / POA / Parent / Guardian, Accepts Plan and Informed Consent Obtained History Surgery Operation Date: 11/01/18 08:30 Proposed Procedures p Diagnositc Laparoscopy - Haseeb Quintanilla, DO Height/Weight Height: 5 ft 6 in Weight: 74.8 kg Allergies Allergy/AdvReac Type Severity Reaction Status Date / Time bee venom protein (honey bee) Allergy Severe SWELLING Unverified 11/01/18 10:57 AND TROUBLE BREATHING Sulfa (Sulfonamide Allergy Severe HIVES Verified 11/01/18 10:57 Antibiotics) Medications Home Medications Medication Instructions Recorded Confirmed Last Taken albuterol sulfate 3 ml INHALATION Q6 PRN #0 10/21/14 11/01/18 Unknown budesonide-formoterol 2 puff INHALATION BID #0 inhaler 06/21/16 11/01/18 Unknown amlodipine 10 mg PO QAM 11/01/18 11/01/18 Unknown cholecalciferol (vitamin D3) 5,000 unit PO QAM 11/01/18 11/01/18 Unknown [Vitamin D3] fluticasone propionate [Flonase 2 spray INTRANASAL DAILY PRN 11/01/18 11/01/18 Unknown Allergy Relief] glimepiride 1 mg PO QAM 11/01/18 11/01/18 Unknown lorazepam 1 mg PO QAM PRN 11/01/18 11/01/18 Unknown metformin 1,000 mg PO BID 11/01/18 11/01/18 Unknown zmplkmdbtirg-hlzohynb-sulrws 1 tab PO QAM 11/01/18 11/01/18 Unknown [Multivitamin 50 Plus] sucralfate 1 g PO QID 11/01/18 11/01/18 Unknown thiamine HCl (vitamin B1) 250 mg PO QAM 11/01/18 11/01/18 Unknown trazodone 150 mg PO HS PRN 11/01/18 11/01/18 Unknown Active Medications Generic Name Dose Route Start Last Admin Trade Name Freq PRN Reason Stop Dose Admin Morphine Sulfate 2 mg 11/01/18 09:25 11/01/18 09:54 Morphine Sulfate IV 11/15/18 09:24 2 mg Q15M PRN Administration Pain NPO Date Last Intake of Fluids: 11/01/18 Time Last Intake of Fluids: 06:00 Last Intake of Fluids Comment: one cup of coffee Date Last Intake of Solids: 11/01/18 Time Last Intake of Solids: 06:00 Last Intake of Solids Comment: one banana Past Medical History Medical History Diabetes mellitus Hemoptysis (Acute) Hiatal hernia (Acute) Bronchiectasis COPD (chronic obstructive pulmonary disease) Pneumonia Exercise / Class Metabolic Activity II 4-5 Yardwork/Stairs/Walk up hill Past Family History Family History Other Family history non-contributory Past Surgical History Surgical History S/P carpal tunnel release S/P gastric bypass History of bronchoscopy Past Anesthesia History No Hx of Anesthesia Complications and No Family Hx of Anesthesia Complications History of PONV No Hx of PONV and No Hx of Motion Sickness Social History Smoking Status: Never smoker tobacco type: cigarettes Hx Alcohol Use: No Hx Substance Use: No Physical Exam Vital Signs Last Vital Signs Temp 98.1 F 11/01/18 09:24 Pulse 83 11/01/18 11:25 Resp 18 11/01/18 11:25 BP 109/66 11/01/18 11:25 Pulse Ox 96 11/01/18 11:25 ENMT Mouth: + edentulous Thyromental Distance: > or= 3.5 Finger Breadths Mallampati Class: II Neck normal visual inspection Respiratory normal respiratory effort Auscultation: lungs clear to auscultation bilaterally Cardiovascular Rate/Rhythm: regular rate and regular rhythm Testing Laboratory Results 11/01/18 09:48 11/01/18 09:48 PT 10.4 Seconds (9.0-12.0) 11/01/18 09:48 INR 1.0 (0.9-1.1) 11/01/18 09:48 11/01/18 11:38 POC Glucose 175 H Electrocardiogram Date: 11/01/18 Normal sinus rhythm, rate 92 bpm Low voltage QRS Borderline ECG When compared with ECG of 25-AUG-2018 17:44, Aberrant conduction is no longer Present Chest X-Ray Date: 11/01/18 Findings: + NAD Echocardiogram Date: 06/30/16 -- Conclusions -- Left ventricular systolic function is normal. No regional wall motion abnormalities noted. Ejection Fraction = 55-60%. There is borderline concentric left ventricular hypertrophy. Grade I diastolic dysfunction, (abnormal relaxation pattern).
--- NOTE | 2018-11-01 11:42 | History & Physical Bridge Note ---
Date of Service November 01, 2018 History & Physical Bridge Note I have examined the patient, reviewed the History & Physical and in the interval since the performance of the History & Physical I have noted the following changes of clinical significance: Pt seen. agree with Dr. Kemp's note. perforated viscuous likely ulcer at G-J anastomosis. discussed options with pt and her son as well as risks ( bleeding/infection/dvt/pe/mi/cva/injury to an organ such as spleen, stomach, bowel etc...possible open procedure etc... questions answered. will proceed russ.
[2018-11-01] MEDS ORDERED: KETAMINE HCL INJ 50 MG/ML 10 ML VIAL ONE (12:19)
[2018-11-01] MEDS ORDERED: HYDROmorphone INJ 2 MG/ML SYR/VIAL ONE (12:30)
[2018-11-01] MEDS ORDERED: ROCURONIUM BROMIDE 10 MG/ML 5 ML VIAL ONE (12:32)
[2018-11-01] MEDS ORDERED: PHENYLEPHRINE 100MCG/ML 5ML SYR ONE (12:32)
[2018-11-01] MEDS ORDERED: ONDANSETRON INJ 2 MG/ML 2 ML VIAL ONE (12:32)
[2018-11-01] MEDS ORDERED: NEOSTIGMINE METHYLSULFATE 5 MG/5 ML SYR ONE (12:32)
[2018-11-01] MEDS ORDERED: GLYCOPYRROLATE 0.2 MG/ML VIAL ONE (12:32)
[2018-11-01] MEDS ORDERED: PROPOFOL IV EMULSION 10 MG/ML 20 ML VIAL IV ONE (12:32)
[2018-11-01] MEDS ORDERED: LIDOCAINE HCL 2% 2 ML VIAL/AMP(20MG/ML) INFIL ONE (12:32)
[2018-11-01] MEDS ORDERED: DEXAMETHASONE SOD INJ 4 MG/ML VIAL ONE (12:32)
[2018-11-01] MEDS ORDERED: METHYLENE BLUE 0.5% 10 ML VIAL ONE (12:35)
[2018-11-01] MEDS ORDERED: TISSEEL FIBRIN SEALANT 10ML TOP ONE (12:52)
--- NOTE | 2018-11-01 13:48 | Operative Report ---
Post Operative Report Pre & Post Diagnosis Operation Date: 11/01/18 08:30 Pre-Op Diagnosis: Possible perforated ulcer at the gastrojejunostomy from pervious bypass Post-Op Diagnosis: Perforated marginal ulcer from pervious bypass;adhesions Procedure Operation Date: 11/01/18 08:30 Actual Procedures p Diagnositc Laparoscopy, primary repair of perforated marginal ulcer; inta-op egd; enterolysis - Haseeb Quintanilla DO Surgeon Haseeb Quintanilla DO Mold Clamper Dr. Kemp Estimated Blood Loss 10 Findings Consistent with Post-Op Diagnosis Specimens none Description of Procedure After informed consent was obtained the patient was taken to the operating room and placed in supine position. After successful intubation a Bello catheter was placed and the abdomen was sterilely prepped and draped in usual fashion. A supraumbilical incision was made with an 11 blade scalpel and carried down through the soft tissue using cautery. The anterior rectus fascia was opened using cautery and two #0 Vicryl stay sutures were placed. Peritoneum was elevated with hemostats and incised under direct vision using a Metzenbaum scissor. A finger sweep was performed. A 12 mm [place] trocar was placed in the abdomen was insufflated to 18 mmHg. Laparoscope was inserted and the abdomen was examined in 360 degrees. There was acute inflammation in the upper abdomen with some succus. We placed a subxiphoid 5 mm port a right upper quadrant 12 mm port a right flank 5 mm port and a left flank 5 mm port. The patient was placed in reverse Trendelenburg position. We began by suction irrigating the purulent fluid out of the upper abdomen. I followed the Riky limb from her prior bypass up to the gastrojejunal anastomosis. On the medial side there was a very large obvious perforation. The Riky limb and stomach were adhesed to the undersurface of the left lobe of the liver. I had to use harmonic scalpel to take this down. Once this plane was created we then were able to elevate the left lobe of liver. This did expose a moderate sized hiatal hernia. There was no gastric incarceration. I was able to free up the Riky limb from surrounding structures so that I could roll it laterally. This exposed a large perforated ulcer in its entirety. After I freed up the edges I was able to use 3-0 Polysorb sutures to oversew the area of perforation. I was able to sew small bowel mucosa to the gastric mucosa in simple interrupted fashion. Once we had this closed I was able to oversew the serosal layers in similar fashion. Once this was completed I then performed an intraoperative EGD. We submerged the area of perforation in water and I was able to pass the scope down into the gastric pouch and through the anastomosis. There was no evidence of any ongoing leak. The repair was airtight. I then removed the EGD scope. We reinforced the repair by covering it with Tisseel sealant. I then also placed a Adair patch using some omentum we completely encompass the area of perforation and sutured it to a portion of the gastric remnant as well as the gastric pouch itself on the medial side of the repair. At the end of the procedure there was adequate hemostasis. We thoroughly irrigated the right upper quadrant left upper quadrant as well as the pelvis. We placed a 10 flat Otis-Madsen drain under the left lobe of the liver and brought out through 1 of the port sites and secured it using 2-0 nylon. No other abnormalities were identified. All the trochars were removed and the abdomen was desufflated. The fascia the camera port was closed using 0 Vicryl in a [id number]-[id number] fashion. All the wounds were irrigated and closed using 4-0 Monocryl. Marcaine was injected around them for postoperative analgesia. Skin glue was used as a dressing. The patient was awaken extubated and transferred recovery in stable condition. My partner Dr. Kemp assisted through the entire case as there was no other competent help available. I attest to the content of the Intraoperative Record and any orders documented therein. Any exceptions are noted below.
[2018-11-01] MEDS: fentaNYL citrate 100 MCG/2 ML VIAL IV PRN ×4 (14:09→14:46)
--- NOTE | 2018-11-01 14:43 | Anesthesiology Progress Note ---
Date of Service November 01, 2018 Anesthesia Post Procedure Vital Signs Vital Signs: Temp Pulse Pulse Resp BP BP BP 11/01/18 14:40 86 18 116/59 L 11/01/18 14:29 97.9 F 77 18 114/63 11/01/18 14:20 75 18 119/65 11/01/18 14:10 75 18 114/53 L 11/01/18 14:00 84 18 130/65 11/01/18 13:50 98.4 F 80 18 122/59 L 11/01/18 11:42 98.1 F 83 20 130/75 11/01/18 11:25 83 18 109/66 11/01/18 11:00 80 18 117/67 11/01/18 10:45 81 17 118/61 11/01/18 10:20 86 19 98/63 L 11/01/18 10:02 103 H 18 84/58 L 11/01/18 09:24 98.1 F 93 H 18 90/58 L Pulse Ox 11/01/18 14:40 100 11/01/18 14:29 95 11/01/18 14:20 100 11/01/18 14:10 100 11/01/18 14:00 100 11/01/18 13:50 100 11/01/18 11:42 98 11/01/18 11:25 96 11/01/18 11:00 97 11/01/18 10:45 98 11/01/18 10:20 99 11/01/18 10:02 98 11/01/18 09:24 98 Pain Intensity Upper Abdomen: Pain Intensity: 5 Transfer of Care Handoff Completed per policy Notes Mental Status: alert / awake / arousable and participated in evaluation Patient Amnestic to Procedure: Yes Nausea / Vomiting: adequately controlled Pain: adequately controlled Airway Patency, RR, SpO2: stable & adequate BP & HR: stable & adequate Hydration State: stable & adequate Anesthetic Complications: no major complications apparent and Pt Satisfied with anesthetic care
[2018-11-01] MEDS ORDERED: MoRPHine SULFATE 4 MG/ML 1 ML CARP\\VIAL ONE ×2 (14:56→15:08)
[2018-11-01] MEDS: MoRPHine SULFATE 10 MG/ML CARP/VIAL IV PRN ×3 (14:56→15:09)
[2018-11-01] MEDS ORDERED: GLUCOSE 10 TABS/TUBE PO PRN (15:39)
[2018-11-01] MEDS ORDERED: GLUCOSE 40% GEL 15 GM TUBE PO PRN (15:39)
[2018-11-01] MEDS ORDERED: GLUCAGON FOR INJ 1 MG VIAL SQ PRN (15:39)
[2018-11-01] MEDS ORDERED: DEXTROSE 50% 50 ML SYRINGE IV PRN (15:39)
[2018-11-01] MEDS ORDERED: PIPERACILL/TAZOBAC CONSULT ACTIVE PRN (15:39)
[2018-11-01] MEDS ORDERED: CARBOHYDRATES FOR HYPOGLYCEMIA PO PRN (15:39)
[2018-11-01] MEDS ORDERED: LORazepam 0.5 MG/1 ML VIAL IV PRN (15:39)
[2018-11-01] MEDS ORDERED: ALBUTEROL 0.083% NEBU SOLN 3 ML VIAL INH PRN (15:39)
[2018-11-01] MEDS: SODIUM CHLORIDE 0.9% 1000ML 1,000 ML IV SCH (15:54)
[2018-11-01] MEDS: HYDROmorphone INJ 1 MG/ML SYRINGE IV PRN ×2 (15:57→21:01)
[2018-11-01] MEDS: PIPERACILLIN/TAZOBACTAM 3.375 GM in DEXTROSE 5% 100 ML IV SCH (16:26)
[2018-11-01] MEDS ORDERED: INSULIN ASPART 100 UNITS/ML 3 ML PEN SC SCH (16:30)
[2018-11-01] MEDS ORDERED: Nursing to Pharmacy Communication ONE ×2 (16:39→18:27)
[2018-11-01] MEDS: INSULIN ASPART 100 UNITS/ML 3 ML PEN SC SCH (18:15)
[2018-11-01] MEDS ORDERED: INSULIN ASPART 100 UNITS/ML 3 ML PEN SC ONE (18:45)
[2018-11-01] MEDS ORDERED: LANTUS PER UNIT CHARGE SQ ONE (19:00)
[2018-11-01] MEDS: BUDESONIDE/FORMOTEROL FUMARATE 160/4.5 60 PUFFS/INHALER INH SCH (20:45)
[2018-11-01 22:38] LABS: Appearance Urine Cloudy (Clear); Bacteria Urine Automated Negative (Negative); Bilirubin Urine Negative (Negative); Blood Urine Negative (Negative); Color Urine Yellow; Epithelial Cell Urine Auto 20-30 /lpf (0-5); Glucose Urine UA Trace (Negative); Ketones Urine Trace (Negative); Leukocyte Esterase Urine Negative (Negative); Nitrite Urine Negative (Negative); Protein Urine Negative (Negative); Specific Gravity Urine 1.035 (1.000-1.030); Urobilinogen Urine Negative (Negative)
[2018-11-02] MEDS: INSULIN ASPART 100 UNITS/ML 3 ML PEN SC SCH ×5 (00:10→23:59)
[2018-11-02] MEDS: PIPERACILLIN/TAZOBACTAM 3.375 GM in DEXTROSE 5% 100 ML IV SCH ×4 (00:11→23:59)
[2018-11-02] MEDS: SODIUM CHLORIDE 0.9% 1000ML 1,000 ML IV SCH ×4 (00:16→23:47)
[2018-11-02] MEDS: HYDROmorphone INJ 1 MG/ML SYRINGE IV PRN ×7 (01:51→22:46)
--- NOTE | 2018-11-02 06:34 | Surgery Progress Note ---
Date of Service November 02, 2018 Assessment & Plan (1) Bowel perforation: POD 1 intraop findings discussed with pt keep npo get ba swallow in few days prior to resuming oral intake Patient most likely has a perforated ulcer at the gastrojejunostomy from the previous bypass I discussed the case with my partner will perform gastric bypass surgery and he recommended to proceed with laparoscopy and likely oversew the gastric perforation risk and complication were explained to the patient possible open and she would like to proceed accordingly all questions were answered her is at bedside Subjective no major issues feels ok Physical Exam Physical Exam: abd soft with expected post op discomfort TALAT drain serous no gi contents Results & Data Vital Signs (Past 12 Hours) Vital Signs Temp Pulse Resp BP Pulse Ox 11/02/18 03:52 36.8 C 81 18 113/68 92 11/01/18 23:29 36.7 C 76 16 106/68 93 11/01/18 22:40 36.8 C 77 16 100/62 89 L 11/01/18 18:40 36.7 C 80 16 123/69 96
--- NOTE | 2018-11-02 08:27 | Anesthesiology Progress Note ---
Date of Service November 02, 2018 Anesthesia Post Procedure Vital Signs Vital Signs: Temp Pulse Pulse Pulse Resp BP BP 11/02/18 07:17 36.7 C 75 14 136/64 11/02/18 03:52 36.8 C 81 18 113/68 11/01/18 23:29 36.7 C 76 16 106/68 11/01/18 22:40 36.8 C 77 16 100/62 11/01/18 18:40 36.7 C 80 16 123/69 11/01/18 18:00 36.6 C 75 16 112/69 11/01/18 16:40 36.3 C L 72 16 128/70 11/01/18 16:21 36.6 C 70 16 110/69 11/01/18 16:01 36.5 C 77 18 113/73 11/01/18 15:20 70 18 121/61 11/01/18 15:10 36.3 C L 74 18 129/68 11/01/18 15:00 87 18 124/61 11/01/18 14:50 65 18 124/63 11/01/18 14:40 86 18 116/59 L 11/01/18 14:29 36.6 C 77 18 114/63 11/01/18 14:20 75 18 119/65 11/01/18 14:10 75 18 114/53 L 11/01/18 14:00 84 18 130/65 11/01/18 13:50 36.9 C 80 18 122/59 L 11/01/18 11:42 36.7 C 83 20 11/01/18 11:25 83 18 109/66 11/01/18 11:00 80 18 11/01/18 10:45 81 17 11/01/18 10:20 86 19 11/01/18 10:02 103 H 18 11/01/18 09:24 36.7 C 93 H 18 90/58 L BP Pulse Ox 11/02/18 07:17 90 11/02/18 03:52 92 11/01/18 23:29 93 11/01/18 22:40 89 L 11/01/18 18:40 96 11/01/18 18:00 95 11/01/18 16:40 96 11/01/18 16:21 97 11/01/18 16:01 99 11/01/18 15:20 11/01/18 15:10 11/01/18 15:00 11/01/18 14:50 11/01/18 14:40 11/01/18 14:29 95 11/01/18 14:20 11/01/18 14:10 11/01/18 14:00 11/01/18 13:50 11/01/18 11:42 130/75 98 11/01/18 11:25 96 11/01/18 11:00 117/67 97 11/01/18 10:45 118/61 98 11/01/18 10:20 98/63 L 99 11/01/18 10:02 84/58 L 98 11/01/18 09:24 98 Notes Mental Status: alert / awake / arousable and participated in evaluation Nausea / Vomiting: adequately controlled Pain: adequately controlled Airway Patency, RR, SpO2: stable & adequate BP & HR: stable & adequate Hydration State: stable & adequate
[2018-11-02] MEDS: BUDESONIDE/FORMOTEROL FUMARATE 160/4.5 60 PUFFS/INHALER INH SCH ×2 (08:49→20:15)
--- NOTE | 2018-11-02 09:13 | Surgery Progress Note ---
Date of Service November 02, 2018 Assessment & Plan (1) Bowel perforation: pod 1 doing as expected if continues to do well will obtain UGI tomorrow keep NPO OOB today. Subjective doing ok. expected surgical discomfort. pain improved from admission. Physical Exam Physical Exam: alert. nad abd: soft. TALAT minimal /serous Results & Data Vital Signs (Past 12 Hours) Vital Signs Temp Pulse Resp BP Pulse Ox 11/02/18 07:17 36.7 C 75 14 136/64 90 11/02/18 03:52 36.8 C 81 18 113/68 92 11/01/18 23:29 36.7 C 76 16 106/68 93 11/01/18 22:40 36.8 C 77 16 100/62 89 L
--- NOTE | 2018-11-02 17:45 | Hospitalist Consultation ---
Date of Consultation November 02, 2018 Assessment & Plan (1) COPD (chronic obstructive pulmonary disease): She continues on her oral inhaled medications of Symbicort and albuterol (2) Diabetes mellitus: Oral medications have been held she is been placed on basal bolus insulin starting glargine x1 dose and her insulin aspartate scale has been tightened leukosis been in reasonable control since initial stressors of surgery (3) Bowel perforation: This was secondary to perforated ulcer. Patient did have over so she remains on Zantac intravenously and Zosyn (4) DVT prophylaxis: SCDs for DVT prophylaxis chemoprophylaxis is contraindicated (5) Hypertension: Patient's amlodipine is held History of Present Illness Attending Physician: Haseeb Quintanilla DO History of Present Illness Patient taken urgently to the operating room on 01 November due to perforated ulcer with oversew. Patient however has had relatively stable hemoglobin hemodynamics. Her biggest issue is been postoperative hyperglycemia which is been managed initially by dose of glargine and then insulin sliding scale with correction factor. She did appear to hypotension associated with this and her antihypertensives have been held as medical problems include COPD this is been stable on oral inhaled medications Allergies Allergy/AdvReac Type Severity Reaction Status Date / Time bee venom protein (honey bee) Allergy Severe SWELLING Unverified 11/01/18 10:57 AND TROUBLE BREATHING Sulfa (Sulfonamide Allergy Severe HIVES Verified 11/01/18 10:57 Antibiotics) Home Medications Home Medications Medication Instructions Recorded Confirmed Type budesonide-formoterol 2 puff INHALATION BID #0 inhaler 06/21/16 11/01/18 History albuterol sulfate 2.5 mg INHALATION Q4H 11/01/18 11/01/18 History amlodipine 10 mg PO QAM 11/01/18 11/01/18 History cholecalciferol (vitamin D3) 5,000 unit PO QAM 11/01/18 11/01/18 History [Vitamin D3] fluticasone propionate [Flonase 2 spray INTRANASAL DAILY PRN 11/01/18 11/01/18 History Allergy Relief] glimepiride 1 mg PO QAM 11/01/18 11/01/18 History lorazepam 1 mg PO QAM PRN 11/01/18 11/01/18 History metformin 1,000 mg PO BID 11/01/18 11/01/18 History xdfqunvweqtc-bdacaohz-stawbz 1 tab PO QAM 11/01/18 11/01/18 History [Multivitamin 50 Plus] sucralfate 1 g PO QID 11/01/18 11/01/18 History thiamine HCl (vitamin B1) 250 mg PO QAM 11/01/18 11/01/18 History trazodone 150 mg PO HS PRN 11/01/18 11/01/18 History Patient History Medical History Diabetes mellitus Hemoptysis (Acute) Hiatal hernia (Acute) Bronchiectasis COPD (chronic obstructive pulmonary disease) Pneumonia Family History Other Family history non-contributory Social History Preferred Language: Hebrew Communication Ability: Effective School Health Assistant Required: No Beliefs That Will Affect Care: None Current Living Situation: Alone Other Information That Helps Us Care for You: No Feels Safe at Home: Yes Safety Concerns: Feels Safe At This Time Smoking Status: Former smoker Tobacco Type: cigarettes Do You Dip or Chew Tobacco: No Second Hand Exposure: No Tobacco Cessation Education Requested by Patient: No Hx Alcohol Use: No Hx Substance Use: No Review of Systems Review of Systems: ROS: well nourished well developed. No double vision blurry vision No problems with speech or swallowing No palpitations, chest pain or pressure No Wheezing or breathing issues no coughing Moderate diffuse abdominal pain no vomiting mild nausea No burning urine urine frequency or changes in color No focal joint pain or muscle pain No skin rashes or oral lesions No unusual bruising or bleeding No focused back pain or numbness or loss of strength No changes in memory or confusion Physical Exam Physical Exam: The patient appeared well nourished and normally developed. Vital signs as documented. Head exam is unremarkable. normocephalic, atraumatic Neck is without jugular venous distension, thyromegaly, or lymphademopathy Lungs are clear to auscultation and percussion. Cardiac exam reveals Rhythm is regular. First and second heart sounds normal. Abdominal exam reveals hypoactive bowel sounds, no masses, no organomegaly Extremities are nonedematous and both pedal pulses are present Neurologic exam is A&Ox3, no focal deficits, strength is equal bilateral Psychologically seems neither anxious or depressed Skin is warm Dry without bruises or lesions Results & Data Vital Signs (Past 12 Hours) Vital Signs Temp Pulse Resp BP Pulse Ox 11/02/18 15:22 37.1 C 73 17 109/67 94 11/02/18 11:42 36.9 C 71 17 105/65 91 11/02/18 11:07 36.7 C 74 18 100/61 91 11/02/18 07:17 36.7 C 75 14 136/64 90 PG Care Time/CCT Total # of Minutes Spent Total Time Spent with Patient: Total time spent is greater than 50% in coordination of care (as documented) at patient's floor/unit and/or counseling patient:
[2018-11-02] MEDS ORDERED: ALBUT/IPRATROP 3MG/0.5MG NEB 3 ML VIAL NEB PRN (18:23)
[2018-11-03] MEDS: HYDROmorphone INJ 1 MG/ML SYRINGE IV PRN ×5 (03:06→23:51)
[2018-11-03] MEDS: INSULIN ASPART 100 UNITS/ML 3 ML PEN SC SCH ×3 (06:29→18:39)
[2018-11-03 07:42] LABS: Basophils # (auto) 0.01 K/uL (0-0.2); Basophils % (auto) 0.1 %; Eosinophils # (auto) 0.02 K/uL (0-0.5); Eosinophils % (auto) 0.1 %; Hematocrit (blood only) 35.3 % (37-47); Hemoglobin 11.3 g/dL (12.0-16.0); Immature Granulocytes # (auto) 0.03 K/uL (0.00-0.02); Immature Granulocytes % (auto) 0.2 %; Lymphocytes # (auto) 1.08 K/uL (1.2-3.4); Lymphocytes % (auto) 8.1 %; Mean Corpuscular Volume 88.5 fL (80-100); Mean Platelet Volume 10.3 fL (7.4-10.4); Monocytes # (auto) 0.71 K/uL (0.11-0.59); Monocytes % (auto) 5.3 %; Neutrophils # (auto) 11.54 K/uL (1.4-6.5); Neutrophils % (auto) 86.2 %; Platelet Count 226 K/uL (130-400); RDW Coefficient of Variation 14.1 % (11.5-14.5); Red Blood Count 3.99 M/uL (4.2-5.4); White Blood Count 13.39 K/uL (4.8-10.8)
[2018-11-03 08:00] LABS: BUN Creatinine Ratio 22.6 (10-20); Calcium 8.4 mg/dl (8.5-10.1); Creatinine Clr Calc Pharmacy 50.9 ml/min; Est GFR (African American) 59.5; Est GFR (Non-African American) 51.3; Potassium 4.7 mmol/L (3.5-5.1)
[2018-11-03] MEDS: SODIUM CHLORIDE 0.9% 1000ML 1,000 ML IV SCH ×3 (08:09→22:14)
[2018-11-03] MEDS: PIPERACILLIN/TAZOBACTAM 3.375 GM in DEXTROSE 5% 100 ML IV SCH ×3 (08:09→23:51)
[2018-11-03] MEDS: BUDESONIDE/FORMOTEROL FUMARATE 160/4.5 60 PUFFS/INHALER INH SCH ×2 (08:14→20:17)
--- NOTE | 2018-11-03 10:50 | Surgery Progress Note ---
Date of Service November 03, 2018 Assessment & Plan (1) Bowel perforation: POD 2 repair of marginal ulcer WBC unchanged 13,000, hgb down to 11 will check UGI today as above. If UGI ok, would keep on clears only over weekend Dr. oGncalves covering for weekend. Subjective feels somewhat better, still having some pain, no flatus, no nausea Physical Exam Gastrointestinal (Abdomen): Inspection/Auscultation: + abdominal surgical drain present (25 cc, serous); abdomen not distended Percussion/Palpation: abdomen soft Results & Data Vital Signs (Past 12 Hours) Vital Signs Temp Pulse Pulse Resp BP Pulse Ox 11/03/18 07:53 37.0 C 75 19 100/66 94 11/02/18 23:08 37.0 C 84 17 108/59 L 91
--- NOTE | 2018-11-03 11:38 | Fluoroscopy Report ---
[place] upper GI series wo air CLINICAL HISTORY: perforated marginal ulcer repair COMPARISON STUDY: Abdomen and pelvis CT 11/01/2018. FINDINGS: Total fluoroscopy time was 1.7 minutes. 20 fluoroscopic spot images submitted. The patient swallowed water-soluble contrast without difficulty. The esophagus is normal in course and caliber. M ild esophageal dysmotility. There is a surgical drain within the left upper quadrant on the measuring machine operator vie w. Small focus of contrast which appears extraluminal at the gastrojejunostomy. This raises the possi bility of a small anastomotic leak. This is best seen on image 20. IMPRESSION: Small focus of contrast which appears extraluminal at the level the gastrojejunostomy. T herefore, this raises the possibility of small anastomotic leak. Follow-up recommended to evaluate fo r stability/resolution. Electronically signed by: Luis F Green M.D. 11/03/2018 11:36 AM
--- NOTE | 2018-11-03 13:22 | Surgery Progress Note ---
Date of Service November 03, 2018 Subjective UGI reviewed with radiology, leak is questionable but will keep npo for now Results & Data Vital Signs (Past 12 Hours) Vital Signs Temp Pulse Resp BP Pulse Ox 11/03/18 12:55 37.1 C 89 19 130/78 97 11/03/18 07:53 37.0 C 75 19 100/66 94
--- NOTE | 2018-11-03 13:28 | Hospitalist Progress Note ---
Date of Service November 03, 2018 Assessment & Plan (1) COPD (chronic obstructive pulmonary disease): Her pulmonary status remains stable on her typical oral inhaled medications of Symbicort and albuterol (2) Diabetes mellitus: Oral medications have been held she is been placed on basal bolus insulin starting glargine x1 dose and her insulin aspartate scale was tightened however she did have some mild hypoglycemia today we will once again readjust her sliding scale as she remains n.p.o. (3) Bowel perforation: This was secondary to perforated ulcer. Patient did have over so she remains on Zantac intravenously and Zosyn surgery is keeping the patient n.p.o. at this time as her symptoms are increasing with discomfort (4) DVT prophylaxis: SCDs for DVT prophylaxis chemoprophylaxis is contraindicated (5) Hypertension: Patient's amlodipine be held Subjective Patient has some persistent abdominal pain she has good bowel sounds she is had no flatus or stool, surgery is sent for an upper GI there is no confirmed upper GI leak although surgery wishes to keep patient n.p.o. due to her clinical situation of not feeling well and having increasing abdominal discomfort. Review of Systems Review of Systems: ROS: well nourished well developed. No double vision blurry vision No problems with speech or swallowing No palpitations, chest pain or pressure No Wheezing or breathing issues Abdominal pain with nausea no vomiting at home she has of constipation No burning urine urine frequency or changes in color No focal joint pain or muscle pain No skin rashes or oral lesions No unusual bruising or bleeding No focused back pain or numbness or loss of strength No changes in memory or confusion Physical Exam Physical Exam: The patient appeared mild to moderately uncomfortable Vital signs as documented. Head exam is unremarkable. normocephalic, atraumatic Neck is without jugular venous distension, thyromegaly, or lymphademopathy Lungs are clear to auscultation and percussion. Cardiac exam reveals Rhythm is regular. First and second heart sounds normal. Abdominal exam reveals occasional and active bowel sounds diffusely tender TALAT drain still serosanguineous drainage Extremities are nonedematous and both pedal pulses are present Neurologic exam is A&Ox3, no focal deficits, strength is equal bilateral Psychologically seems neither anxious or depressed Skin is warm Dry without bruises or lesions Results & Data Vital Signs (Past 12 Hours) Vital Signs Temp Pulse Resp BP Pulse Ox 07/12/19 12:55 37.1 C 89 19 130/78 97 11/03/18 07:53 37.0 C 75 19 100/66 94 PG Care Time/CCT Total # of Minutes Spent Total Time Spent with Patient: Total time spent is greater than 50% in coordination of care (as documented) at patient's floor/unit and/or counseling patient:
[2018-11-04] MEDS: INSULIN ASPART 100 UNITS/ML 3 ML PEN SC SCH ×4 (00:01→18:14)
[2018-11-04] MEDS: SODIUM CHLORIDE 0.9% 1000ML 1,000 ML IV SCH ×3 (01:29→21:45)
[2018-11-04] MEDS: HYDROmorphone INJ 1 MG/ML SYRINGE IV PRN ×4 (03:31→21:17)
[2018-11-04] MEDS: BUDESONIDE/FORMOTEROL FUMARATE 160/4.5 60 PUFFS/INHALER INH SCH ×2 (08:00→20:13)
[2018-11-04] MEDS: PIPERACILLIN/TAZOBACTAM 3.375 GM in DEXTROSE 5% 100 ML IV SCH ×3 (08:02→23:58)
[2018-11-04 08:35] LABS: Hematocrit (blood only) 35.6 % (37-47); Hemoglobin 11.4 g/dL (12.0-16.0); Mean Corpuscular Volume 88.3 fL (80-100); Mean Platelet Volume 10.3 fL (7.4-10.4); Platelet Count 209 K/uL (130-400); RDW Coefficient of Variation 13.8 % (11.5-14.5); RDW Standard Deviation 44.8 fL (36.4-46.3); Red Blood Count 4.03 M/uL (4.2-5.4); White Blood Count 9.76 K/uL (4.8-10.8)
[2018-11-04 09:06] LABS: BUN Creatinine Ratio 16.5 (10-20); Calcium 8.7 mg/dl (8.5-10.1); Creatinine Clr Calc Pharmacy 71.5 ml/min; Est GFR (African American) 89.8; Est GFR (Non-African American) 77.5; Potassium 4.1 mmol/L (3.5-5.1)
--- NOTE | 2018-11-04 09:28 | Surgery Progress Note ---
Date of Service November 04, 2018 Assessment & Plan (1) Acute marginal ulcer hem/perf/obst: doing well ? leak so will maintain npo IVF drain with non-concerning drainage per primary team will keep npo over weekend and possibly restudy Tuesday Present on Admission?: Yes Subjective POD #3 lap repair marginal ulcer perforation ? leak on UGI mild pain drain with serous drainage, not concerning for gastric drainage Review of Systems Constitutional: no fever and no chills Respiratory: no cough and no dyspnea Cardiovascular: no chest pain Gastrointestinal: + abdominal pain (mild); no nausea and no vomiting Musculoskeletal: no back pain Physical Exam Constitutional: well developed and well nourished Neck: trachea midline Respiratory: normal respiratory effort, lungs clear to auscultation Cardiovascular: Rate/Rhythm: regular rate and regular rhythm Gastrointestinal (Abdomen): Inspection/Auscultation: normal bowel sounds; abdomen not distended Percussion/Palpation: + abdomen tender (mild) drain serosanguinous Musculoskeletal: Head/Neck/Chest: normocephalic and head atraumatic Skin: no rashes, warm and dry Results & Data Vital Signs (Past 12 Hours) Vital Signs Temp Pulse Resp BP BP Pulse Ox 11/04/18 07:25 36.6 C 86 16 164/82 H 95 11/03/18 23:57 36.9 C 85 16 150/78 H 94
--- NOTE | 2018-11-04 16:27 | Hospitalist Progress Note ---
Date of Service November 04, 2018 Assessment & Plan (1) COPD (chronic obstructive pulmonary disease): Her pulmonary status remains stable on her typical oral inhaled medications of Symbicort and albuterol no wheezes encourage incentive spirometry to avoid atelectasis (2) Diabetes mellitus: Oral medications continue to be on hold while she is n.p.o. and will continue on sliding scale she remains n.p.o. (3) Bowel perforation: This was secondary to perforated ulcer. Patient did have over so she remains on Zantac intravenously and Zosyn surgery is keeping the patient n.p.o. at this time with concern for possible continued leak (4) DVT prophylaxis: SCDs for DVT prophylaxis chemoprophylaxis is contraindicated (5) Hypertension: Patient's amlodipine remains to be on hold Subjective Patient still with abdominal pain due to flatus surgery [facility] are concerned about a small leak from her perforation repair she otherwise looks nontoxic Review of Systems Review of Systems: ROS: well nourished well developed. No double vision blurry vision No problems with speech or swallowing No palpitations, chest pain or pressure No Wheezing or breathing issues Persistent abdominal pain with mild nausea but no vomiting she did have flatus No burning urine No focal joint pain or muscle pain No skin rashes or oral lesions No unusual bruising or bleeding No focused back pain or numbness or loss of strength No changes in memory or confusion Physical Exam Physical Exam: The patient appeared well nourished and in mild to moderate distress Vital signs as documented. Head exam is unremarkable. normocephalic, atraumatic Neck is without jugular venous distension, thyromegaly, or lymphademopathy Lungs are clear decreased at the bases encourage incentive spirometry Cardiac exam reveals Rhythm is regular. First and second heart sounds normal. Abdominal exam reveals hypoactive but present bowel sounds moderate discomfort to abdominal exam no guarding no rebound no acute abdomen Extremities are nonedematous and both pedal pulses are present Neurologic exam is A&Ox3, no focal deficits, strength is equal bilateral Psychologically seems neither anxious or depressed Skin is warm Dry without bruises or lesions Results & Data Vital Signs (Past 12 Hours) Vital Signs Temp Pulse Resp BP Pulse Ox 11/04/18 15:27 36.8 C 72 17 149/91 H 95 11/04/18 07:25 36.6 C 86 16 164/82 H 95 PG Care Time/CCT Total # of Minutes Spent Total Time Spent with Patient: Total time spent is greater than 50% in coordination of care (as documented) at patient's floor/unit and/or counseling patient:
[2018-11-04] MEDS: ACETAMINOPHEN 1,000 MG/100 ML VIAL IV PRN (20:12)
[2018-11-05] MEDS: HYDROmorphone INJ 1 MG/ML SYRINGE IV PRN ×5 (00:03→23:34)
[2018-11-05] MEDS: INSULIN ASPART 100 UNITS/ML 3 ML PEN SC SCH ×4 (00:14→18:40)
[2018-11-05] MEDS: SODIUM CHLORIDE 0.9% 1000ML 1,000 ML IV SCH ×3 (03:03→18:16)
[2018-11-05 06:52] LABS: BUN Creatinine Ratio 10.9 (10-20); Calcium 8.4 mg/dl (8.5-10.1); Creatinine Clr Calc Pharmacy 80.6 ml/min; Est GFR (African American) 103.9; Est GFR (Non-African American) 89.7; Potassium 3.6 mmol/L (3.5-5.1)
[2018-11-05] MEDS: BUDESONIDE/FORMOTEROL FUMARATE 160/4.5 60 PUFFS/INHALER INH SCH ×2 (07:01→18:35)
[2018-11-05] MEDS: PIPERACILLIN/TAZOBACTAM 3.375 GM in DEXTROSE 5% 100 ML IV SCH ×3 (07:33→23:34)
--- NOTE | 2018-11-05 09:47 | Surgery Progress Note ---
Date of Service November 05, 2018 Assessment & Plan (1) Acute marginal ulcer hem/perf/obst: study with ? leak npo over weekend and may restudy in AM drain serous without ant sign of leak clinically doing well Present on Admission?: Yes Subjective POD# 4 repair marginal ulcer perforation feels OK minimal pain no vomiting Review of Systems Constitutional: no fever and no chills Respiratory: no dyspnea Cardiovascular: no chest pain Gastrointestinal: + abdominal pain (mild) and + nausea; no vomiting Physical Exam Constitutional: WD/WN, vitals as above Neck: trachea midline Respiratory: normal respiratory effort, lungs clear to auscultation Cardiovascular: RRR, no murmur, no edema Gastrointestinal (Abdomen): Percussion/Palpation: + abdomen tender (mild) and abdomen soft drain with serous drainage Musculoskeletal: Head/Neck/Chest: normocephalic and head atraumatic Skin: no rashes, warm and dry Results & Data Vital Signs (Past 12 Hours) Vital Signs Temp Pulse Resp BP BP Pulse Ox 11/05/18 07:48 37.1 C 83 15 152/84 H 95 11/05/18 00:05 36.7 C 67 16 153/80 H 98
--- NOTE | 2018-11-05 12:09 | Hospitalist Progress Note ---
Date of Service November 05, 2018 Assessment & Plan (1) COPD (chronic obstructive pulmonary disease): Her pulmonary status remains stable on her typical oral inhaled medications of Symbicort and albuterol continue to have nursing encourage incentive spirometry to avoid atelectasis (2) Diabetes mellitus: Oral medications continue to be on hold while she is n.p.o. and will continue on sliding scale she has had acceptable blood glucose control (3) Bowel perforation: This was secondary to perforated ulcer. Patient did have over so she remains on Zantac intravenously and Zosyn surgery is keeping the patient n.p.o. at this time with concern for possible continued leak (4) DVT prophylaxis: SCDs for DVT prophylaxis chemoprophylaxis is contraindicated (5) Hypertension: Patient's amlodipine remains to be on hold blood pressures have been acceptable Subjective Chart reviewed this patient she has had bowel movements and vitals are stable laboratories include glucose control is been stable. Surgery is awaiting till 11/06 to discuss with primary surgeon whether she should have a repeat upper GI study to confirm or refute possible leak at anastomotic site. No active medical problems at this time Results & Data Vital Signs (Past 12 Hours) Vital Signs Temp Pulse Resp BP Pulse Ox 11/05/18 07:48 37.1 C 83 15 152/84 H 95 PG Care Time/CCT Total # of Minutes Spent Total Time Spent with Patient: Total time spent is greater than 50% in coordination of care (as documented) at patient's floor/unit and/or counseling patient:
[2018-11-06] MEDS: INSULIN ASPART 100 UNITS/ML 3 ML PEN SC SCH ×5 (00:36→21:08)
[2018-11-06] MEDS: SODIUM CHLORIDE 0.9% 1000ML 1,000 ML IV SCH ×3 (02:10→18:32)
[2018-11-06 06:27] LABS: Hematocrit (blood only) 39.4 % (37-47); Mean Corpuscular Volume 85.5 fL (80-100); Mean Platelet Volume 10.1 fL (7.4-10.4); Platelet Count 282 K/uL (130-400); RDW Coefficient of Variation 13.3 % (11.5-14.5); RDW Standard Deviation 41.6 fL (36.4-46.3); Red Blood Count 4.61 M/uL (4.2-5.4); White Blood Count 6.74 K/uL (4.8-10.8)
[2018-11-06 06:57] LABS: BUN Creatinine Ratio 8.4 (10-20); Calcium 8.5 mg/dl (8.5-10.1); Creatinine Clr Calc Pharmacy 81.8 ml/min; Est GFR (African American) 104.4; Est GFR (Non-African American) 90.1; Potassium 3.7 mmol/L (3.5-5.1)
[2018-11-06] MEDS: HYDROmorphone INJ 1 MG/ML SYRINGE IV PRN (07:55)
[2018-11-06] MEDS: PIPERACILLIN/TAZOBACTAM 3.375 GM in DEXTROSE 5% 100 ML IV SCH ×2 (07:59→15:36)
[2018-11-06] MEDS: BUDESONIDE/FORMOTEROL FUMARATE 160/4.5 60 PUFFS/INHALER INH SCH ×2 (08:03→21:10)
--- NOTE | 2018-11-06 09:16 | Surgery Progress Note ---
Date of Service November 06, 2018 Assessment & Plan (1) Acute marginal ulcer hem/perf/obst: ? leak on UGI tuesday. clinically doing well. afebrile. TALAT serous only. wbc normal. exam benign will administer methylene blue dye test as well as repeat UGI. if both look good will try liquids later today. Subjective pt seen. feeling well. "hungry".... minimal abdominal discomfort. denies nausea. Physical Exam Physical Exam: alert. nad abd: soft. expected incisional tenderness. no signs of peritoneal irritation. TALAT scant/serous. Results & Data Vital Signs (Past 12 Hours) Vital Signs Temp Pulse Pulse Pulse Resp BP BP 11/06/18 07:55 37.0 C 73 16 160/90 H 11/06/18 00:00 73 161/84 H 11/05/18 23:39 36.8 C 84 16 173/74 H Pulse Ox 11/06/18 07:55 96 11/06/18 00:00 11/05/18 23:39 97
[2018-11-06] MEDS ORDERED: METHYLENE BLUE 0.5% 10 ML VIAL TOP ONE (10:30)
--- NOTE | 2018-11-06 12:25 | Fluoroscopy Report ---
FL upper GI series wo air CLINICAL HISTORY: 68 years-old Female presenting with eval for leak s/p gastric ulcer, history of gas tric bypass 6 years ago. TECHNIQUE: A standard air contrast upper GI series was performed. Spot images of the esophagus and s tomach were obtained in multiple obliquities both upright and prone. COMPARISON: 11/03/2018. FINDINGS: A Otis-Madsen drain projects over the epigastrium. The patient swallowed barium without difficulty. The esophagus is structurally normal. Tertiary contr actions suggest esophageal dysmotility. A small hiatal hernia is present, which is a sliding type her messi. Postsurgical changes of gastrojejunostomy. A single fluoroscopic image records the small apparen t outpouching near the gastrojejunostomy, which may arise from the gastric lumen (image 9/18). This w as not demonstrated on the remaining images. No holdup of contrast at the gastrojejunostomy. Normal a ppearance of the jejunal limb. No free peritoneal spillage of contrast. Fluoroscopy dosage (mGy): Not available. Fluoroscopy time: 1.4 minutes. Number or time of high level fluoroscopy (HLF), digital spot, or digital subtraction images: 18. IMPRESSION: 1. No free peritoneal spillage of contrast to suggest leak. 2. Small apparent outpouching at the gastrojejunostomy, which may arise from the gastric lumen. This was only demonstrated on a single image on the current study. Alternatively, this could represent ov erlap of the jejunal limb. Correlate with endoscopic findings. 3. No obstruction. Electronically signed by: Laurent Victor M.D. 11/06/2018 12:23 PM
[2018-11-06] MEDS: ONDANSETRON INJ 2 MG/ML 2 ML VIAL IV PRN (13:15)
[2018-11-06] MEDS ORDERED: Nursing to Pharmacy Communication ONE (14:04)
--- NOTE | 2018-11-06 21:17 | Hospitalist Progress Note ---
Date of Service November 06, 2018 Assessment & Plan (1) Gastric ulcer with perforation: POD #5 s/p primary repair of perforated marginal ulcer of gastrojejunal bypass. Management per surgery including dietary advancement, pain control, etc. Patient is nearly 10 liters positive since admission and reports mild BURRIS. Would lower fluid rate to 100cc/hr now that she is taking clear liquids. Present on Admission?: Yes (2) Asthma: Without exacerbation at this time. Cont symbicort BID. Cont albuterol prn. Present on Admission?: Yes (3) Esophageal reflux disease: Cont IV H2 lavelle. Present on Admission?: Yes (4) Hypertension: BPs are starting to rise; thus restart amlodipine 2.5mg BID. (5) DM w/o complication type II: Controlled. Cont to hold PO meds. Novolog SSI for now. Present on Admission?: Yes (6) DVT prophylaxis: SCDs, ambulation Subjective patient feels modestly bloated but no nausea/emesis. tolerated clears following the upper GI series showing no leak. has baseline asthma but no significant dyspnea or dyspnea on exertion. no chest pain. +flatus and stool. Review of Systems Constitutional: no fever and no chills Respiratory: no cough Cardiovascular: no chest pain Gastrointestinal: no nausea and no vomiting Physical Exam Constitutional: well developed and well nourished; no acute distress ENMT: external ear and nose normal, oropharynx normal Mouth: oral mucous membranes not dry Respiratory: normal respiratory effort, lungs clear to auscultation Auscultation: + diminished lung sounds (left base only) Cardiovascular: Rate/Rhythm: regular rate and regular rhythm Heart Sounds: normal S1 and normal S2; no murmur Vessels: no JVD Gastrointestinal (Abdomen): Inspection/Auscultation: + abdomen distended (minimal) Percussion/Palpation: + abdomen tender (incisional) and abdomen soft; no hepatosplenomegaly TALAT drain in place Skin: no rashes, warm and dry Psychiatric: A+Ox3, euthymic affect Results & Data Vital Signs (Past 12 Hours) Vital Signs Temp Pulse Resp BP BP Pulse Ox 11/06/18 15:20 37.2 C 89 17 139/69 96 11/06/18 10:16 138/75 Laboratory Results Laboratory Results - last 24 hr 11/05/18 11/06/18 11/06/18 23:40 05:33 05:43 WBC 6.74 RBC 4.61 Hgb 13.0 Hct 39.4 MCV 85.5 MCH 28.2 MCHC 33.0 RDW Std Deviation 41.6 RDW Coeff of Irina 13.3 Plt Count 282 MPV 10.1 Sodium Potassium Chloride Carbon Dioxide Anion Gap BUN Creatinine Est Cr Clr Drug Dosing Est GFR ( Amer) Est GFR (Non-Af Amer) BUN/Creatinine Ratio Glucose POC Glucose 93 94 Calcium 11/06/18 11/06/18 11/06/18 05:43 12:26 17:02 WBC RBC Hgb Hct MCV MCH MCHC RDW Std Deviation RDW Coeff of Irina Plt Count MPV Sodium 140 Potassium 3.7 Chloride 108 H Carbon Dioxide 21 Anion Gap 11.0 BUN 6 L Creatinine 0.69 Est Cr Clr Drug Dosing 81.8 Est GFR ( Amer) 104.4 Est GFR (Non-Af Amer) 90.1 BUN/Creatinine Ratio 8.4 L Glucose 106 H POC Glucose 103 H 118 H Calcium 8.5 11/06/18 20:55 WBC RBC Hgb Hct MCV MCH MCHC RDW Std Deviation RDW Coeff of Irina Plt Count MPV Sodium Potassium Chloride Carbon Dioxide Anion Gap BUN Creatinine Est Cr Clr Drug Dosing Est GFR ( Amer) Est GFR (Non-Af Amer) BUN/Creatinine Ratio Glucose POC Glucose 112 H Calcium PG Care Time/CCT Total # of Minutes Spent Total Time Spent with Patient: Total time spent is greater than 50% in coordination of care (as documented) at patient's floor/unit and/or counseling patient: (1) Gastric ulcer with perforation Gastric ulcer chronicity: acute Qualified Code(s): K25.1 - Acute gastric ulcer with perforation (2) Asthma Asthma severity: unspecified severity Asthma persistence: unspecified Asthma complication type: uncomplicated Qualified Code(s): J45.909 - Unspecified asthma, uncomplicated (3) Esophageal reflux disease Esophagitis presence: esophagitis presence not specified Qualified Code(s): K21.9 - Gastro-esophageal reflux disease without esophagitis (4) Hypertension Hypertension type: essential hypertension Qualified Code(s): I10 - Essential (primary) hypertension (5) DM w/o complication type II Diabetes mellitus adjunct faculty for medical terminology insulin use: without adjunct faculty for medical terminology use Qualified Code(s): E11.9 - Type 2 diabetes mellitus without complications
[2018-11-06] MEDS ORDERED: AMLODIPINE BESYLATE 5 MG TAB PO ONE (21:24)
[2018-11-07] MEDS: PIPERACILLIN/TAZOBACTAM 3.375 GM in DEXTROSE 5% 100 ML IV SCH ×3 (00:03→17:48)
[2018-11-07] MEDS: ONDANSETRON INJ 2 MG/ML 2 ML VIAL IV PRN (00:03)
[2018-11-07] MEDS: SODIUM CHLORIDE 0.9% 1000ML 1,000 ML IV SCH (03:53)
[2018-11-07] MEDS: HYDROmorphone INJ 1 MG/ML SYRINGE IV PRN ×5 (04:58→20:50)
--- NOTE | 2018-11-07 08:56 | Surgery Progress Note ---
Date of Service November 07, 2018 Assessment & Plan (1) Gastric ulcer with perforation: doing as expected. will add carafate slurry qid heplock IV will advance to full liquids as this may be more palatable not ready for d/c yet. Subjective doing ok. "bad day yesterday"...the blue dye and contrast did not sit well. feeling somewhat better today. Does not like the clear liquid choices. Physical Exam Physical Exam: alert. nad mm's moist. no oral thrush. abd: soft. no g/r/r. TALAT scant/serous. no blue. Results & Data Vital Signs (Past 12 Hours) Vital Signs Temp Pulse Resp BP Pulse Ox 11/07/18 07:15 36.6 C 63 16 144/71 H 98 11/06/18 23:42 36.9 C 66 16 154/79 H 96 (1) Gastric ulcer with perforation Gastric ulcer chronicity: acute Qualified Code(s): K25.1 - Acute gastric ulcer with perforation
[2018-11-07 09:03] LABS: BUN Creatinine Ratio 6.6 (10-20); Calcium 8.4 mg/dl (8.5-10.1); Creatinine Clr Calc Pharmacy 71.5 ml/min; Est GFR (African American) 89.8; Est GFR (Non-African American) 77.5; Magnesium 1.5 mg/dl (1.8-2.4); Phosphorus 3.7 mg/dl (2.5-4.9); Potassium 3.5 mmol/L (3.5-5.1)
[2018-11-07] MEDS: BUDESONIDE/FORMOTEROL FUMARATE 160/4.5 60 PUFFS/INHALER INH SCH ×2 (09:35→20:52)
[2018-11-07] MEDS: SUCRALFATE 1 GM/10 ML UDC PO SCH ×4 (09:40→20:51)
[2018-11-07] MEDS: INSULIN ASPART 100 UNITS/ML 3 ML PEN SC SCH ×4 (09:42→20:53)
[2018-11-07] MEDS: MAGNESIUM SULFATE / D5W 1 GM/100 ML BAG IV SCH ×2 (09:56→11:20)
--- NOTE | 2018-11-07 13:24 | XRay Report ---
XR chest 2V routine CLINICAL HISTORY: decreased breath sounds, cough COMPARISON STUDY: 11/01/2018 FINDINGS: The cardiac and mediastinal contours remain stable. There are linear left lung parenchymal densities consistent with scar/subsegmental atelectasis. There is no focal pulmonary consolidation. T here is a trace left pleural effusion. There is a subdiaphragmatic catheter visualized on the left. T here is no failure.[ IMPRESSION: 1. Trace left pleural effusion 2. Linear left lung opacities, likely far/atelectasis. Electronically signed by: Calvin Triana M.D. 11/07/2018 1:22 PM
[2018-11-07] MEDS: guaiFENesin 600 MG TABCR PO SCH ×2 (14:05→20:51)
[2018-11-07] MEDS: ALBUTEROL HFA 8 GM INHALER INH SCH ×2 (14:16→17:48)
[2018-11-07] MEDS: ACETAMINOPHEN 1,000 MG/100 ML VIAL IV PRN (22:13)
--- NOTE | 2018-11-07 23:06 | Hospitalist Progress Note ---
Date of Service November 07, 2018 Assessment & Plan (1) Gastric ulcer with perforation: POD #6 s/p primary repair of perforated marginal ulcer of gastrojejunal bypass. Management per surgery including dietary advancement, pain control, etc. Agree w/ d/c of IV fluids to avoid volume overload. Overall doing well from surgical standpoint. Does patient need ongoing IV antibiotics?? (2) Asthma: Despite her symptoms she has no evidence of exacerbation at this time. I obtained chest x-ray today - no evidence of volume overload, pneumonia or other significant findings. Mild atelectasis only - advised aggressive pulmonary toilet, incentive kaleb, etc. Added mucinex 1200mg BID. Added ventolin inhaler 2 puffs via spacer q6h scheduled. Cont symbicort BID. No indication for steroids, etc at this time. Reassurance given. (3) Esophageal reflux disease: Cont IV H2 lavelle. Remains on carafate as well. Defer to surgery. (4) Hypertension: Resume amlodipine. (5) DM w/o complication type II: Controlled. Cont to hold PO meds. Novolog SSI for now. (6) Hypomagnesemia: replace w/ 2 grams mag sulfate IV. repeat mag level am. (7) DVT prophylaxis: SCDs, ambulation progressing nicely Subjective patient concerned "about breathing" and wonders if Dr Naidu should be consulted. she has mild mucous production and mild cough. no dyspnea. no wheeze. took albuterol today for some of the symptoms. tolerating diet. +flatus and stool. Review of Systems Constitutional: no fever Respiratory: + cough, + chest congestion, + sputum production and + wheezing; no dyspnea, no dyspnea on exertion, no hemoptysis and no pain on inspiration Cardiovascular: no chest pain Gastrointestinal: no abdominal pain Physical Exam Constitutional: well developed and well nourished; no acute distress ENMT: external ear and nose normal, oropharynx normal Mouth: oral mucous membranes not dry Respiratory: normal respiratory effort, lungs clear to auscultation Auscultation: + diminished lung sounds (both bases) Cardiovascular: Rate/Rhythm: regular rate and regular rhythm Heart Sounds: normal S1 and normal S2; no murmur Vessels: no JVD Extremities: + edema (trace b/l) Gastrointestinal (Abdomen): Inspection/Auscultation: normal bowel sounds; abdomen not distended Percussion/Palpation: abdomen soft; abdomen nontender and no hepatosplenomegaly drain in place; dressings intact; multiple laparoscopic incisions -clean/dry Skin: no rashes, warm and dry Psychiatric: A+Ox3, euthymic affect Results & Data Vital Signs (Past 12 Hours) Vital Signs Temp Pulse Resp BP Pulse Ox 11/07/18 15:04 36.8 C 82 17 149/81 H 98 Laboratory Results Laboratory Results - last 24 hr 11/07/18 11/07/18 11/07/18 07:50 08:14 12:19 Sodium 143 Potassium 3.5 Chloride 112 H Carbon Dioxide 21 Anion Gap 9.0 BUN 5 L Creatinine 0.79 Est Cr Clr Drug Dosing 71.5 Est GFR ( Amer) 89.8 Est GFR (Non-Af Amer) 77.5 BUN/Creatinine Ratio 6.6 L Glucose 123 H POC Glucose 110 H 159 H Calcium 8.4 L Phosphorus 3.7 Magnesium 1.5 L 11/07/18 11/07/18 17:23 20:42 Sodium Potassium Chloride Carbon Dioxide Anion Gap BUN Creatinine Est Cr Clr Drug Dosing Est GFR ( Amer) Est GFR (Non-Af Amer) BUN/Creatinine Ratio Glucose POC Glucose 124 H 209 H Calcium Phosphorus Magnesium PG Care Time/CCT Total # of Minutes Spent Total Time Spent with Patient: Total time spent is greater than 50% in coordination of care (as documented) at patient's floor/unit and/or counseling patient: (1) DM w/o complication type II Diabetes mellitus half-way insulin use: without half-way use Qualified Code(s): E11.9 - Type 2 diabetes mellitus without complications (2) Esophageal reflux disease Esophagitis presence: esophagitis presence not specified Qualified Code(s): K21.9 - Gastro-esophageal reflux disease without esophagitis (3) Gastric ulcer with perforation Gastric ulcer chronicity: acute Qualified Code(s): K25.1 - Acute gastric ulcer with perforation (4) Hypertension Hypertension type: essential hypertension Qualified Code(s): I10 - Essential (primary) hypertension (5) Asthma Asthma complication type: uncomplicated Asthma persistence: unspecified Asthma severity: unspecified severity Qualified Code(s): J45.909 - Unspecified asthma, uncomplicated
[2018-11-08] MEDS: ALBUTEROL HFA 8 GM INHALER INH SCH ×4 (01:36→18:31)
[2018-11-08] MEDS: PIPERACILLIN/TAZOBACTAM 3.375 GM in DEXTROSE 5% 100 ML IV SCH (01:37)
[2018-11-08] MEDS: HYDROmorphone INJ 1 MG/ML SYRINGE IV PRN ×2 (05:31→07:55)
[2018-11-08 07:37] LABS: Hematocrit (blood only) 34.8 % (37-47); Hemoglobin 11.3 g/dL (12.0-16.0); Mean Corpuscular Hgb Conc 32.5 g/dL (32-36); Mean Corpuscular Volume 83.9 fL (80-100); Platelet Count 258 K/uL (130-400); RDW Coefficient of Variation 13.2 % (11.5-14.5); RDW Standard Deviation 40.1 fL (36.4-46.3); Red Blood Count 4.15 M/uL (4.2-5.4); White Blood Count 5.78 K/uL (4.8-10.8)
[2018-11-08 08:12] LABS: Creatinine Clr Calc Pharmacy 60.1 ml/min; Est GFR (African American) 72.8; Est GFR (Non-African American) 62.8; Magnesium 1.8 mg/dl (1.8-2.4)
[2018-11-08] MEDS: BUDESONIDE/FORMOTEROL FUMARATE 160/4.5 60 PUFFS/INHALER INH SCH ×2 (08:17→21:19)
[2018-11-08] MEDS: SUCRALFATE 1 GM/10 ML UDC PO SCH ×4 (08:18→21:18)
[2018-11-08] MEDS: guaiFENesin 600 MG TABCR PO SCH ×2 (08:18→21:19)
[2018-11-08] MEDS: INSULIN ASPART 100 UNITS/ML 3 ML PEN SC SCH ×4 (09:49→21:20)
[2018-11-08] MEDS ORDERED: fentaNYL 25 MCG/HR TDSY TD SCH ×2 (10:00)
[2018-11-08] MEDS ORDERED: CHECK FENTANYL PATCH PLACEMENT SCH (16:00)
[2018-11-08] MEDS: CHECK FENTANYL PATCH PLACEMENT SCH (16:33)
[2018-11-08] MEDS ORDERED: AMLODIPINE BESYLATE 5 MG TAB PO ONE (17:46)
--- NOTE | 2018-11-08 18:14 | Hospitalist Progress Note ---
Date of Service November 08, 2018 Assessment & Plan (1) Gastric ulcer with perforation: POD #7 s/p primary repair of perforated marginal ulcer of gastrojejunal bypass. Management per surgery including dietary advancement, pain control, etc. Antibiotics have been d/c. Overall doing well from surgical standpoint. Convert IV zantac to PO PPI twice daily. Continue carafate 1gm QID. (2) Asthma: Lungs clear, cxr essentially normal on 11/07. No exacerbation but patient was having mild cough/congestion yesterday. Cont mucinex, ventolin qid, and pulmonary toilet. Cont symbicort BID. (3) Esophageal reflux disease: PPI twice daily + carafate QID. (4) Hypertension: Resume amlodipine 5mg daily. (5) DM w/o complication type II: Controlled. Cont to hold PO meds. Resume those at d/c. Novolog SSI for now. (6) Hypomagnesemia: resolved (7) Edema: LLE. In light of no chemical DVT proph and the chronicity of the asymmetric edema will obtain doppler of LLE -- r/o DVT. (8) DVT prophylaxis: SCDs, ambulation progressing nicely anticipate d/c tomorrow Subjective no respiratory issues overnight or today. feels good overall. anticipates d/c home tomorrow. +flatus and stool. tolerating full liquids. reports mild "soreness" in abdomen but better each day. asks about her BP meds. Review of Systems Constitutional: no fever Respiratory: no dyspnea and no dyspnea on exertion Cardiovascular: + edema (left leg - present since September ); no chest pain Gastrointestinal: no nausea and no vomiting Physical Exam Constitutional: well developed and well nourished; no acute distress ENMT: external ear and nose normal, oropharynx normal Respiratory: normal respiratory effort, lungs clear to auscultation Auscultation: + diminished lung sounds (scant - bases) Cardiovascular: Rate/Rhythm: regular rate and regular rhythm (occasional extra beat) Heart Sounds: normal S1 and normal S2; no murmur Vessels: posterior tibial pulses present and dorsalis pedis pulses present; no JVD Extremities: + edema (1+ left leg, <trace on right) Psychiatric: A+Ox3, euthymic affect Results & Data Vital Signs (Past 12 Hours) Vital Signs Temp Pulse Resp BP Pulse Ox 11/08/18 15:19 37.0 C 81 17 146/71 H 98 11/08/18 07:33 36.9 C 70 16 152/75 H 98 Laboratory Results Laboratory Results - last 24 hr 11/08/18 11/08/18 11/08/18 07:02 07:02 08:02 WBC 5.78 RBC 4.15 L Hgb 11.3 L Hct 34.8 L MCV 83.9 MCH 27.2 MCHC 32.5 RDW Std Deviation 40.1 RDW Coeff of Irina 13.2 Plt Count 258 MPV 10.0 Creatinine 0.94 Est Cr Clr Drug Dosing 60.1 Est GFR ( Amer) 72.8 Est GFR (Non-Af Amer) 62.8 POC Glucose 116 H Magnesium 1.8 11/08/18 11/08/18 11/08/18 12:06 17:18 20:41 WBC RBC Hgb Hct MCV MCH MCHC RDW Std Deviation RDW Coeff of Irina Plt Count MPV Creatinine Est Cr Clr Drug Dosing Est GFR ( Amer) Est GFR (Non-Af Amer) POC Glucose 143 H 119 H 147 H Magnesium PG Care Time/CCT Total # of Minutes Spent Total Time Spent with Patient: Total time spent is greater than 50% in coordination of care (as documented) at patient's floor/unit and/or counseling patient: (1) DM w/o complication type II Diabetes mellitus penitentiary insulin use: without terminal carman use Qualified Code(s): E11.9 - Type 2 diabetes mellitus without complications (2) Esophageal reflux disease Esophagitis presence: esophagitis presence not specified Qualified Code(s): K21.9 - Gastro-esophageal reflux disease without esophagitis (3) Gastric ulcer with perforation Gastric ulcer chronicity: acute Qualified Code(s): K25.1 - Acute gastric ulcer with perforation (4) Hypertension Hypertension type: essential hypertension Qualified Code(s): I10 - Essential (primary) hypertension (5) Asthma Asthma complication type: uncomplicated Asthma persistence: unspecified Asthma severity: unspecified severity Qualified Code(s): J45.909 - Unspecified asthma, uncomplicated (6) Edema Edema type: localized Qualified Code(s): R60.0 - Localized edema
--- NOTE | 2018-11-08 19:39 | Ultrasound Report ---
ULTRASOUND LEFT LOWER EXTREMITY VENOUS CLINICAL HISTORY: Left leg pain and swelling. COMPARISON STUDY: No priors. TECHNIQUE: Real-time, grayscale, and color Doppler sonography of the deep veins of the left lower ext remity was performed from the inguinal crease to the calf. Compression and augmentation were utilized . FINDINGS: There is no sonographic evidence of deep venous thrombosis identified in the left lower ext remity. The common femoral, superficial femoral, and popliteal veins are patent and normally compress ible. The greater saphenous vein and the profunda femoris vein at the junction with the common femora l vein are clear. The visualized calf veins are patent. IMPRESSION: There is no sonographic evidence of deep venous thrombosis identified in the left lower e xtremity. Electronically signed by: Carlos Saenz M.D. 11/08/2018 7:37 PM
[2018-11-08] MEDS: PANTOprazole 40 MG TAB PO SCH (21:19)
[2018-11-09] MEDS: CHECK FENTANYL PATCH PLACEMENT SCH ×2 (01:00→07:30)
[2018-11-09] MEDS: ALBUTEROL HFA 8 GM INHALER INH SCH ×2 (01:00→05:38)
[2018-11-09] MEDS: PIPERACILLIN/TAZOBACTAM 3.375 GM in DEXTROSE 5% 100 ML IV SCH (01:14)
[2018-11-09] MEDS: BUDESONIDE/FORMOTEROL FUMARATE 160/4.5 60 PUFFS/INHALER INH SCH (07:29)
[2018-11-09] MEDS: SUCRALFATE 1 GM/10 ML UDC PO SCH (07:30)
[2018-11-09] MEDS: INSULIN ASPART 100 UNITS/ML 3 ML PEN SC SCH (08:14)
[2018-11-09] MEDS: PANTOprazole 40 MG TAB PO SCH (08:56)
[2018-11-09] MEDS: guaiFENesin 600 MG TABCR PO SCH (08:56)
[2018-11-09] MEDS ORDERED: AMLODIPINE BESYLATE 5 MG TAB PO SCH (09:00)
--- NOTE | 2018-11-09 09:00 | Surgery Progress Note ---
Date of Service November 09, 2018 Assessment & Plan (1) Gastric ulcer with perforation: ok for d/c instructions given no need for antibiotics. cont PPI and carafate duragesic temporarily for pain as I don't want oral pain meds secondary to ulcer irritation. f/u with me in 1 week. Subjective doing well/no new issues. ready to go home Physical Exam Physical Exam: alert. nad abd: soft. incisions look good. Results & Data Vital Signs (Past 12 Hours) Vital Signs Temp Pulse Resp BP Pulse Ox 11/09/18 07:28 36.8 C 73 16 147/75 H 95 11/08/18 23:21 36.9 C 70 16 123/84 97 (1) Gastric ulcer with perforation Gastric ulcer chronicity: acute Qualified Code(s): K25.1 - Acute gastric ulcer with perforation
--- NOTE | 2018-11-09 11:41 | Hospitalist Progress Note ---
Date of Service November 09, 2018 Assessment & Plan (1) Gastric ulcer with perforation: POD #8 s/p primary repair of perforated marginal ulcer of gastrojejunal bypass. Overall doing well from surgical standpoint. Tolerating diet, drain is gone, passing gas/stool. Off abx. Ok from surgical standpoint to d/c home. I faxed prescription to her pharmacy for PPI twice daily. She will continue carafate 1gm QID as well. To have f/u with surgery after d/c. (2) Asthma: No exacerbation at this time. O2 sats wnl. Recent cxr -- atelectasis only. Cont mucinex, ventolin qid prn and symbicort BID. (3) Esophageal reflux disease: PPI twice daily + carafate QID. (4) Hypertension: Cont amlodipine 10mg daily. (5) DM w/o complication type II: Resume PO meds at d/c. (6) Hypomagnesemia: resolved (7) Edema: LLE. Doppler of LLE negative for DVT. Etiology of asymmetric edema uncertain - present since September or earlier. Venous insufficiency? asked her to f/u with PCP for this. ok from medical standpoint to d/c home today. Subjective upon my arrival patient was dressed and ready to d/c home. she has occasional cough. no wheeze. no dyspnea. tolerating diet. drain has been pulled from abdomen. doesn't think she has PPI at home. Dr Quintanilla gave her script for carafate. Review of Systems Constitutional: no fever Respiratory: + cough; no dyspnea Cardiovascular: no chest pain Gastrointestinal: no nausea, no vomiting, no constipation and no diarrhea/loose stools Physical Exam Constitutional: well developed and well nourished; no acute distress ENMT: external ear and nose normal, oropharynx normal Respiratory: normal respiratory effort, lungs clear to auscultation Cardiovascular: Rate/Rhythm: regular rate and regular rhythm Heart Sounds: normal S1 and normal S2; no murmur Vessels: posterior tibial pulses present and dorsalis pedis pulses present; no JVD Extremities: + edema (1+ left leg; none on right) Skin: no rashes, warm and dry Psychiatric: A+Ox3, euthymic affect Results & Data Vital Signs (Past 12 Hours) Vital Signs Temp Pulse Pulse Pulse Resp BP BP 11/09/18 09:40 36.8 C 73 73 73 16 149/81 H 147/75 H 11/09/18 07:28 36.8 C 73 16 147/75 H Pulse Ox 11/09/18 09:40 95 11/09/18 07:28 95 PG Care Time/CCT Total # of Minutes Spent Total Time Spent with Patient: Total time spent is greater than 50% in coordination of care (as documented) at patient's floor/unit and/or counseling patient: (1) DM w/o complication type II Diabetes mellitus shelter insulin use: without vermin exterminator use Qualified Code(s): E11.9 - Type 2 diabetes mellitus without complications (2) Edema Edema type: localized Qualified Code(s): R60.0 - Localized edema (3) Esophageal reflux disease Esophagitis presence: esophagitis presence not specified Qualified Code(s): K21.9 - Gastro-esophageal reflux disease without esophagitis (4) Gastric ulcer with perforation Gastric ulcer chronicity: acute Qualified Code(s): K25.1 - Acute gastric ulcer with perforation (5) Hypertension Hypertension type: essential hypertension Qualified Code(s): I10 - Essential (primary) hypertension (6) Asthma Asthma complication type: uncomplicated Asthma persistence: unspecified Asthma severity: unspecified severity Qualified Code(s): J45.909 - Unspecified asthma, uncomplicated
--- NOTE | 2018-11-15 04:52 | Discharge Summary ---
PRIMARY DISCHARGE DIAGNOSIS: Perforated marginal ulcer of gastrojejunostomy. SECONDARY DISCHARGE DIAGNOSES: 1. Asthma. 2. Type 2 diabetes. 3. Hypertension. 4. Depression. 5. Gastroesophageal reflux disease. HOSPITAL COURSE: The patient is a 68-year-old female who presented to the Emergency Department with several hours of abdominal pain. CT showed pneumoperitoneum with likely perforated marginal ulcer. She was taken to the operating room for diagnostic laparoscopy with repair of marginal ulcer, intraoperative EGD, and enterolysis. The procedure was well tolerated. She was transferred to the surgical floor. She was continued on IV Zosyn throughout admission. Hospitalist was consulted routinely for assistance with managing her diabetes, COPD, and hypertension. She was kept n.p.o. until postoperative day 2 when an upper GI was performed. There was of possibility of a leak on of the repair versus residual contrast or a rugal fold. We continued conservative approach, kept her n.p.o. for an additional 2 days. We then performed a dye test where there was no evidence of methylene blue in the TALAT drain. Repeat upper GI was also negative for leak. She was started on clear liquids. She was advanced to full liquids on day 6. Her bowel function had returned. She was able to tolerate a soft diet. TALAT drain was removed. She was stable for discharge on postoperative day 8. DISCHARGE INSTRUCTIONS: Discharge home. Continue a bland diet. Follow up with Dr. Quintanilla in approximately 1 week. DISCHARGE MEDICATIONS: Carafate 10 mL p.o. q.i.d., Prevacid 30 mg p.o. b.i.d., Duragesic 1 patch 72 hours. She can continue her home medications, amlodipine 10 mg daily, albuterol inhaler, budesonide inhaler, glimepiride 1 mg daily, lorazepam 1 mg as needed, metformin 1000 mg b.i.d., trazodone 150 mg at bedtime, daily multivitamin. [facility]
== END 2018-11-09 11:46 | disposition home or self-care (01) | DRG 326 ==
LOC: ED 09:17 → ASU 11:25 → 3N 13:47